=== PATIENT | male | born 1970 | race Caucasian/White ===

== ENCOUNTER 2018-06-27 09:00 | Outpatient (RCR) | payer BC, SELFPAY ==
--- NOTE | 2018-06-27 09:05 | BH.SGPN.GN ---
Behaviors/Verbalizations/Mental Status: [] Client alert and oriented, neatly dressed and groomed. Eye contact good. Motor activity appropriate. Speech within normal limits. Affect flat, mood anxious, depressed. Thoughts linear, logical, no signs of hallucinations or delusions. Client did not fill out a symptom tracker, but he will be meeting with individual therapist to assess suicidal ideation and safety. Client Response/Progress/Benefit: []Client responded well to session, quiet but participating, first day of PHP. Client shared feeling ?anxious? today due to it being client?s first day. Client shared he has been struggling with anxiety, depression, suicidal ideation, and alcohol use for the past few months. Client was recently discharged from inpatient and stated the experience was helpful and he obtained positive supports from it. Client stated he would like to learn how to manage his anxiety and other mental health symptoms while in PHP. Client to continue PHP to prevent decompensation, increase mood stability, and promote safety.
--- NOTE | 2018-06-27 10:15 | BH.SGPN.GN ---
Behaviors/Verbalizations/Mental Status: []Client alert and oriented, neatly dressed and groomed. Eye contact good. Motor activity appropriate. Speech within normal limits. Affect flat, mood anxious, depressed. Thoughts linear, logical, no signs of hallucinations or delusions. Client Response/Progress/Benefit: []Pt listened attentively to others, contributed his thoughts to discussion at times, and appeared engaged throughout session. Pt shared when he started to struggle with depression he had a difficult time asking for help. Pt reported however he realized just how much support he has once he went to rehab because of the overwhelming support he recivied from family and friends. Pt shared he recognizes now just how important it is to have and utilize supports. Pt reported using specific and clear communication is paez when it comes to using support system. Pt seemed to benefit from increasing awareness and identifying the qualities of healthy supports. Narrative Note: []
--- NOTE | 2018-06-27 11:15 | BH.SGPN.GN ---
Behaviors/Verbalizations/Mental Status: []Client alert and oriented, neatly dressed and groomed. Eye contact good. Motor activity appropriate. Speech within normal limits. Affect flat, mood anxious, depressed. Thoughts linear, logical, no signs of hallucinations or delusions. Client Response/Progress/Benefit: []Pt listened attentively to others and contributed his thoughts and ideas to discussion at times. Pt could identify different benefits to the types of social support discussed. Pt reported he will focus on increasing his personal support network. Pt shared building and using his personal supports will help him get out of the house. Pt stated his goal for the week is to reach out to at least one friend to set up a time to hangout. Pt seemed to benefit from learning about the various types of social support. Pt to continue PHP level of care to stabilize moods, decrease depression, and prevent decompensation. Narrative Note: []
--- NOTE | 2018-06-27 12:30 | BH.COMM_ITS ---
Communication Note - Communication with Client Communication Note: Met with pt prior to starting PHP. Updated preadmission screening which occured on 06/15/18 in which he voluntarily admitted himself to [facility]. No significant changes since previous assessment. Reports that hospitalization was beneficial and reduced symptoms however continues to reports anxiety, erratic moods, decreased motivation/energy, increased irritability, and depression. Denies any active suicidal ideations. Met with his psychiatrist last week. Currently taking Latuda 20mg and Buspirone 45mg. Completed paperwork
--- NOTE | 2018-06-27 14:22 | BH.PSA ---
Past Psychiatric History - MH Treatment Hx Medication Trials:: Yes ECT Therapy:: No Ethnicity - Culture Do you identify yourself with any particular cultural, ethnic background, or community?: No - Sexuality Sexual Orientation: Heterosexual Spirituality - Beliefs Is there a particular form of support from this community you can use for your recovery?: Yes Mental Status - Memory Recent Memory: Fair Remote Memory: Good - Concentration Concentration: Fair - Eye Contact Eye Contact: Fair - Speech Speech: Rapid - Thought Process Thought Process: Ruminations Insight: Fair Judgment: Fair Behavior: Anxious - Orientation Orientation: Time, Person, Place, Situation - Appearance Appearance: Neat/clean - Mood Mood: Anxious - Affect Affect: Alert Suicide Assessment - Suicidal Ideation Have you ever felt like hurting yourself?: Yes Were you using ETOH/drugs at the time?: No Suicidal Intentional Rating Scale (SIRS): Suicidal thoughts (past) Physician Notification: If Active suicidal thoughts/Will not contract for safety is checked, contact physician and document in the Physician Notification section below. Violent Behavior/Abuse History - Homicidal Ideation Do you have any homicidal thoughts? If so, explain:: Yes Is there a known potential victim? If yes, who:: No - Abuse Have you ever been abused?: No Types of Abuse: Witness - Life Events Are there any other significant life events?: Financial loss, Hardships - Safety Do you ever feel threatened in your home? If yes, describe:: No Substance Use - Substance Substance Use Type: Alcohol, Cocaine, Marijuana, Tobacco, Caffeine Education & Occupational Histo - Education What is your level of education?: Master Degree Do you have any learning disabilities?: No Legal History - Records Have you had any past legal charges?: No Do you have any current legal charges?: Yes Have you ever been incarcerated? If yes, describe:: No
--- NOTE | 2018-06-27 14:24 | BH.MTP ---
[facility] - Patient Information Program Physician:: Gayatri Segal Primary Therapist:: Shu De Oliveira - Psychiatric Diagnoses Psychiatric Diagnoses:: Bipolar 2 disorder; Alcohol use disorder moderate; Anxiety unspecified; Rule out antisocial personality traits Diagnosis Code(s):: F 31.81 - Estimated LOS Estimated LOS (in weeks):: 6 Problem/Goal #1 - Problem/Goal #1 Stated Goal:: Client will increase mood stability and decrease depressive symptoms, anger, and suicidal thinking due to Bipolar 2 disorder. Description of Barriers: Client identified his as both a support and a stressor as the two of them have some marital issues. Client shared they have tried marriage counseling in the past, but it was unsuccessful. Client appears to have limited insight to his personal warning signs and triggers for anger, depression, and angelika. Client reports he uses alcohol to cope with stress and recognizes it as an unhealthy coping skill, but client does not want to stop drinking as client enjoys beer. Client appears to have difficulty expressing emotions and reports asking for help has ?always? been a problem. Client reports low self-esteem, self-sabotaging behaviors, and unrealistic expectations of self. Client identified issues with interpersonal relationships as a barrier. Functional Impact: Client is a 48-year-old male who presents to [facility] status post recent inpatient psychiatric hospitalization at [place] June 15 - June 21 for depression with suicidal ideation. Client reports a long-standing history of mood symptoms including irritability and anger since childhood and has a history consistent with mood cycling. Client reports episodes of angelika lasting up to 4 days in which he is overly happy, impulsive, irritable, participates in risk-taking behavior including high speed driving, increased alcohol consumption and decreased need for sleep. Client?s most recent episode of angelika was mid-May this year. Client reports his manic episodes are generally followed by a crash into depression with anhedonia decreased energy and increased sleep and suicidal thoughts. Client endorses ruminative anxiety about the future and finding a job. Client identifies recent multiple stressors including job loss, a DUI, discord in his marriage, and an affair. Client shared his mood symptoms have affected occupational and social functioning. Additionally, client reports increased alcohol consumption to ?numb? his emotions of up to a 6 pack a day over 2 months. Goal Relevant Strengths/Supports: Client appears intelligent and reports motivation to improve his mental health and functioning. Client reports he lives for his daughter. Client identifies his daughter, , and two friends as his primary supports. - Objectives Objective #1 Stated Objective: Client will learn and utilize 2-3 healthy coping strategies to manage depressive symptoms, decrease anger, and increase mood stability. Interventions: Therapist will assist client in identifying warning signs and triggers for depression, suicidal ideation, and irritability. Therapist will teach client coping skills to reduce depression, manage anger, and regulate emotions. Discharge Criteria: Client will have accomplished this goal when he can identify and report using 2-3 healthy coping skills to reduce depressive symptoms and manage anger. Target Date: 07/04/18 Review Date: 07/04/18 Status: open Objective #2 Stated Objective: Client will work with therapist to develop a safety plan which includes emergency telephone numbers, strategies to make the environment safe, 3-4 coping strategies for suicidal ideation, lists of supports, positive aspects of his life, and motivations. Interventions: Therapist will help client identify warning signs for crisis and provide list of crisis phone numbers. Therapist will work with client to identify effective coping strategies, supports, and steps to take in time of mental health crisis. Therapist will work with client's supports to ensure the information is communicated and understood. Discharge Criteria: Client will have achieved this goal once he completes his safety plan and is able to utilize coping and thought replacement strategies. Target Date: 07/04/18 Review Date: 07/04/18 Status: open Problem/Goal #2 - Problem/Goal #2 Stated Goal:: Client will reduce anxiety and ruminations while increasing ability to function on daily basis. Description of Barriers: Client identified his as both a support and a stressor as the two of them have some marital issues. Client shared they have tried marriage counseling in the past, but it was unsuccessful. Client appears to have limited insight to his personal warning signs and triggers for anger, depression, and angelika. Client reports he uses alcohol to cope with stress and recognizes it as an unhealthy coping skill, but client does not want to stop drinking as client enjoys beer. Client appears to have difficulty expressing emotions and reports asking for help has ?always? been a problem. Client reports low self-esteem, self-sabotaging behaviors, and unrealistic expectations of self. Client identified issues with interpersonal relationships as a barrier. Functional Impact: Client is a 48-year-old male who presents to [facility] status post recent inpatient psychiatric hospitalization at [facility] June 15 - June 21 for depression with suicidal ideation. Client reports a long-standing history of mood symptoms including irritability and anger since childhood and has a history consistent with mood cycling. Client reports episodes of angelika lasting up to 4 days in which he is overly happy, impulsive, irritable, participates in risk-taking behavior including high speed driving, increased alcohol consumption and decreased need for sleep. Client?s most recent episode of angelika was mid-May this year. Client reports his manic episodes are generally followed by a crash into depression with anhedonia decreased energy and increased sleep and suicidal thoughts. Client endorses ruminative anxiety about the future and finding a job. Client identifies recent multiple stressors including job loss, a DUI, discord in his marriage, and an affair. Client shared his mood symptoms have affected occupational and social functioning. Additionally, client reports increased alcohol consumption to ?numb? his emotions of up to a 6 pack a day over 2 months. Goal Relevant Strengths/Supports: Client appears intelligent and reports motivation to improve his mental health and functioning. Client reports he lives for his daughter. Client identifies his daughter, , and two friends as his primary supports. - Objectives Objective #1 Stated Objective: Client will learn and implement 2-3 calming skills to reduce overall anxiety and manage anxiety symptoms. Interventions: Through group and individual sessions, therapist will teach client calming/relaxation skills and how to apply these skills to everyday life. Therapist will also teach client about cognitive distortions and how thoughts impact emotions and behavior. Discharge Criteria: Client will have achieved this goal when can verbalize at least 2 calming strategies and have practiced techniques to help reduce anxiety. Target Date: 07/04/18 Review Date: 07/04/18 Status: open
--- NOTE | 2018-06-27 14:25 | BH.MDN_ITS ---
Multi-Disciplinary Note - Note 60-min Individual Time Started:: 12:25 Date: 06/27/18 Purpose of session/treatment goals addressed:: The purpose of this session was to gather information on client's current stressors, symptoms, and treatment goals. Another goal was to build rapport. Eye Contact:: Fair Motor Activity:: Restless Appearance:: Neat Speech:: Rambling, Rapid Mood:: Anxious Affect:: Constricted Thoughts:: Racing, No evidence of hallucinations/delusions noted Staff Interventions:: Therapist used active listening and open-ended questions to build rapport and gather information on client's current stressors, symptoms, and treatment goals. Therapist used strengths perspective and emotional validation to combat stigma and negative thoughts client has of self and mental health. Therapist provided psychoeducation on bipolar disorder, anxiety, and depression. Therapist explored what therapeutic strategies that have worked and not worked for client in the past. Therapist discussed expectations for PHP and gave client homework on identifying warning signs and triggers. Client Response:: Client responded well to session, open to meeting with therapist. Client shared his mental health has been declining since 2013 and since then client has struggled to maintain a job, turned to increased drinking, and has increased interpersonal relationship issues. Client was recently discharged from [facility] where client was admitted for suicidal ideation, depression, anger, and anxiety. Client stated his anger is ?a big problem? and that client will often get angry without a known trigger. Client realizes he has an alcohol use issues as client recognizes he drinks to cope with stress, anger, and depression. Client had a DUI two weeks ago which client shared was triggered by an argument with his . Client reported three affairs, one emotional and two intimate. Client shared his is aware of the affairs. Client reported he does not understand why ?I?m so quick to grab onto a relationship.? Client expressed issues with self-image, stigma, and internal validation often sharing ?I used to be successful? and using comparisons. Client was diagnosed with bipolar 2 disorder at [place], and client shared having mixed emotions about the diagnosis due to the stigma, but he is glad to have a label to his emotions, behaviors, and thoughts. Client reports wanting to increase healthy coping skills, learn more about his patterns of behavior in relationships, and increase concentration. Risks/Concerns:: Client denies active suicidal ideation, plan, and intent as of 06/27/18. Client shared he does have thoughts of things would be better if I was gone but his family prevents client from acting on those thoughts. Client reports ability to maintain safety. Progress Toward Goals/Plan:: Client first day of PHP, so no progress to document at this time. Client reported his symptoms of depression and anxiety have been progressively getting worse over the past year. Client reported his treatment goals are to improve his concentration, reduce depression, and learn to manage symptoms. Client shared he was diagnosed with bipolar disorder type 2 while in inpatient and he continues to struggle with the stigma. Client would like to learn more about the diagnosis and how to cope with it. Client recognizes he uses drinking as an unhealthy coping skill and would like to learn new skills to replace drinking. Client stated he would also like to increase self-awareness of his unhealthy relationship patterns. Client to continue PHP to increase mood stability, promote safety, and prevent decompensation. Time Stopped:: 13:20
--- NOTE | 2018-06-28 09:05 | BH.SGPN.GN ---
Behaviors/Verbalizations/Mental Status: [] Eye contact is poor. Motor activity is restless. Appearance is neat. Speech is Appropriate. Mood is anxious and irritable. Affect is congruent. Thoughts are linear and logical. No evidence of psychosis. Reviewed daily check in sheet and no reports of suicidal ideations or intent Client Response/Progress/Benefit: [] Pt only spoke when promoted. Appeared restless today. Emotion for today is tired and irritable. Reports that irritability increased this AM during drive to [facility]. Pt currently on driving restrictions and requires to drive him which causes him stress. Shared pt's first day in PHP yesterday was exhausting. Again did not share much. No progress noted. Limited benefit from group today as he appeared agitated. Will continue in PHP to maintain safety, prevent decompensation, and increase functioning. Narrative Note: []
--- NOTE | 2018-06-28 10:10 | BH.SGPN.GN ---
Behaviors/Verbalizations/Mental Status: []Eye contact is fair. Motor activity is restless. Appearance is neat. Speech is Appropriate. Mood is anxious and irritable. Affect is congruent. Thoughts are linear and logical. No evidence of psychosis. Client Response/Progress/Benefit: [] Client was active participant as evidenced by contributing to discussion and listening to others. Client agreed with peers that goals are important because goals can provide direction and purpose. Client shared sometimes it is difficult for him to follow through with goals because easily distracted or loses motivation. Client sure that it is important for him to set a goal because good to help him move forward. Client shared another important thing to remember is goals can be changed especially when set unrealistic expectations. Continued benefit from increasing knowledge and awareness of how to set smart goals as well as practicing setting small goals in the moment. His Narrative Note: []
--- NOTE | 2018-06-28 11:20 | BH.SGPN.GN ---
Behaviors/Verbalizations/Mental Status: []Eye contact is poor. Motor activity is restless. Appearance is neat. Speech is Appropriate. Mood is anxious and irritable. Affect is congruent. Thoughts are linear and logical. No evidence of psychosis. Client Response/Progress/Benefit: []Pt listened to others and shared thoughts and feelings when elicited by therapist. 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 Pt shared potential solutions to identified obstacles include: communicate with machine shop owners to find time to use shop, sell other car parts on [employer] for money, and work evenings or weekends. Pt reported he can also use his as additional support to help him accomplish his goal. Pt seemed to benefit from identifying a small goal to help him have a positive focus throughout week. Narrative Note: []
--- NOTE | 2018-06-28 14:46 | BH.MDN ---
Multi-Disciplinary Note - Note 60-min Individual Time Started:: 12:27 Date: 06/28/18 Purpose of session/treatment goals addressed:: The purpose of this session was to explore client's mental health warning signs and triggers. Another goal was to discuss coping skills when client recognizes these warning signs and triggers. Eye Contact:: Fair Motor Activity:: Restless - fidgeting with his shirt and binder Appearance:: Neat Speech:: Tangential Mood:: Anxious, Irritable, Dysthymic Affect:: Flat Thoughts:: Racing, No evidence of hallucinations/delusions noted Staff Interventions:: Therapist used open-ended questions to explore client's current stressors and symptoms. Therapist used a worksheet of various warning signs and triggers associated with bipolar disorder and helped client identify ones that pertain to him. Therapist discussed maintenance cycles with client and how cognitive distortions can keep a person stuck. Therapist reviewed healthy coping skills with client. Client Response:: Client responded well to session, open to meeting with therapist. Client reported connecting with the warning signs and triggers worksheet. Client identified various warning signs for hypomania including calling people at inappropriate times, impulsive/risky behaviors, increased anger and irritability, overreacting, and being hyper focused on goals. Client also identified warning signs for depression as well such as isolation, negative thinking, and low motivation. Client identified his triggers for angelika and depression as well. Client shared his biggest triggers are stressful life events, seasonal changes, negative thinking, and feeling sedentary. Client and therapist further discussed cognitive distortions and client reported at times he tells himself I don't deserve to be happy which client recognizes sets himself up for failure. Client receptive to using audiobooks or music as a healthy coping skill in the car to prevent client for becoming angry with his . Risks/Concerns:: Client reports having passive thoughts of , but they do not last more than a few minutes. Client denies plan and intent. Client shared his support system prevents client from acting on the thoughts. Client reports ability to maintain safety. Progress Toward Goals/Plan:: Limited progress currently as it is client's second day in PHP. Client shared that after talking more about bipolar disorder, he feels more accepting that this is his diagnosis. Client continues to endorse irritability, passive thoughts of , a depressed mood, low motivation, and rumination. Client to continue PHP to prevent decompensation, increase awareness, and improve mood stability. Time Stopped:: 13:25
--- NOTE | 2018-06-29 10:14 | BH.SGPN.GN ---
Behaviors/Verbalizations/Mental Status: [Client engaged in group, maintained fair eye contact - at times looking down/away. Casual, neat attire. Appropriate grooming/hygiene. Motor activity WNL. Client speech was a normal rate and tone - at times soft or slow to respond as client appearing deep in thought, mood depressed, affect flat, thoughts linear and logical - at times self-deprecating in nature, reflective. no evidence of delusions or hallucinations.] Client Response/Progress/Benefit: [Responded well to session was actively engaged throughout. Client initially took on a passive participatory role; however, did well to remain active listener throughout the discussion regarding the importance of making healthy changes in one's daily life in order to better improve overall mental health and wellness. He displayed progress in his ability to openly engage during the reflection activity in which clients were challenged to identify small changes they can make in their own life in order to better promote continued progress towards mental health goals. Client benefited from discussing potential barriers for implementing some healthy changes with the group. He initially struggled with identifying what may be preventing him from working towards current goal of improving his overall self-confidence and indicated lacking awareness of what his current barriers may be. As client listen to fellow participants discussed their own barriers he did well to identify some obstacles in his own life including distractions, self-doubt, and feeling uncomfortable in challenging his own negative thinking and self talk. Client would benefit from continued work on identifying distorted thinking patterns as well as potential means for challenging negative or distorted thoughts.] Narrative Note: []
--- NOTE | 2018-06-29 14:14 | BH.MDN ---
Multi-Disciplinary Note - Note Family Time Started:: 09:00 Date: 06/29/18 Purpose of session/treatment goals addressed:: The purpose of this session was to address acute stressors, assess safety, and incorporate client's into the treatment process. Another goal was to create a safety plan. Eye Contact:: Poor Motor Activity:: Slowed Appearance:: Neat Speech:: Soft Mood:: Depressed Affect:: Flat Thoughts:: Linear, Logical, No evidence of hallucinations/delusions noted Staff Interventions:: Therapist used active listening and open-ended questions to explore stressors, triggers, and recent suicidal ideation. Therapist provided psychoeducation to increase understanding and normalize client's experience. Therapist assessed risk and created a safety plan with client and his . Therapist assisted client in identifying warning signs and coping skills. Therapist discussed options for higher level of care should client not be able to maintain safety. Therapist gave client and his crisis resources and information to [facility] should client no longer be able to maintain safety. Therapist helped client verbalize what will help client and what will make client feel worse during moments of crisis. Therapist discussed situation with treatment team and encouraged client to follow up with therapist this afternoon. Therapist to follow up with client's outpatient psychiatrist Dr. Wall on regarding medication concerns. Client Response:: Client entered session quiet and appearing agitated and depressed, but open to meeting with therapist and . Client's shared yesterday client was in a very dark place...I didn't know what to do. Client reported the day was overall good, client left group and did several productive things with his . Client then shared later he had a few beers and contacted the woman he had an affair with. Client reported they spoke on the phone and it provided closure, which was positive, but client recognized after I got stuck in my mind. Client shared he and his then watched a show that was about suicide which further triggered client and led to writing a letter. Client reported he was able to go to sleep, but he woke up feeling depressed. Client's reported she watched client to make sure he was safe, but she feels helpless on what to do if this were to happen again. Therapist discussed returning to inpatient treatment which client and his declined as they felt having a safety plan would be more effective at this time. Therapist discussed pros and cons with client and his . Client and his agreed to the terms of the safety plan and reported understanding should client feel unable to maintain safety he is to go to [facility] or the emergency room. Client identified his warning signs, negative thought patterns, and needs during crisis. Client also came up with coping skills to try today and positive self-talk statements. When asked what will keep client safe today client shared I don't want to go in reference to and that he wants to maintain safety for his family and for himself. Client reports plan to work on his goal from yesterday and text positive supports. Risks/Concerns:: Client reports last night was bad as he had suicidal thoughts, and this morning woke up with some fleeting suicidal ideation. Client identified an accumulation of talking to the woman he had an affair with, drinking, and watching a show about suicide as contributors to his increased suicidal ideation. Client was able to control the thoughts and go to bed last night. Client shared since coming to [facility] today his mood has slightly improved, and he continues to have passive thoughts, but no longer has active suicidal ideation or plan. Client reported if he was alone last night ?I probably would have done it?, but his was with him which served as a protective factor. Client reported he wrote a letter to his and daughter yesterday when he was experiencing the suicidal thoughts. Client did not engage in any other preparatory acts such as accessing weapons or stockpiling medications. Client does not have a history of attempts and able to identify deterrents such as his , daughter, and friends as reasons to live. Client declined to seek inpatient treatment, sharing with the safety plan in place and his watching him, client feels able to maintain safety today. Client in agreement to have lock up medications, remove alcohol for home, avoid triggering people, and hide car keys. Client stated he knows he can maintain safety today because I don't want to go [] and I want to be safe for myself. Client future oriented as evidenced by his report of plans to work on his goal from yesterday, watch a movie he enjoys, and attend group tomorrow. Client and report understanding that should client no longer feel able to maintain safety, or if his symptoms worsen, client is to go to the emergency room or go to [facility] inpatient facility. Progress Toward Goals/Plan:: limited progress as client continues to report a depressed mood, fleeting suicidal ideation, anxiety, anger, and low self-esteem. Client and completed a safety plan with therapist and both agreed to follow procedures established on the safety plan including making the environment safe and who to contact. Client agreed to have his lock up medications, keep the car keys, remove alcohol, and watch client throughout the evening. Client in agreement that should he no longer feel able to maintain safety he will go to [facility] inpatient [facility]. Client to continue PHP to prevent decompensation, promote safety, and increase mood stability. Time Stopped:: 10:00
--- NOTE | 2018-06-29 14:18 | BH.MDN_ITS ---
Multi-Disciplinary Note - Note Family Time Started:: 09:00 Date: 06/29/18 Purpose of session/treatment goals addressed:: The purpose of this session was to address acute stressors, assess safety, and incorporate client's into the treatment process. Another goal was to create a safety plan. Eye Contact:: Poor Motor Activity:: Slowed Appearance:: Neat Speech:: Soft Mood:: Depressed Affect:: Flat Thoughts:: Linear, Logical, No evidence of hallucinations/delusions noted Staff Interventions:: Therapist used active listening and open-ended questions to explore stressors, triggers, and recent suicidal ideation. Therapist provided psychoeducation to increase understanding and normalize client's experience. Therapist assessed risk and created a safety plan with client and his . Therapist assisted client in identifying warning signs and coping skills. Therapist discussed options for higher level of care should client not be able to maintain safety. Therapist gave client and his crisis resources and information to [facility] should client no longer be able to maintain safety. Therapist helped client verbalize what will help client and what will make client feel worse during moments of crisis. Therapist discussed situation with treatment team and encouraged client to follow up with therapist this afternoon. Therapist to follow up with client's outpatient psychiatrist Dr. Wall on regarding medication concerns. Client Response:: Client entered session quiet and appearing agitated and depressed, but open to meeting with therapist and . Client's shared yesterday client was in a very dark place...I didn't know what to do. Client reported the day was overall good, client left group and did several productive things with his . Client then shared later he had a few beers and contacted the woman he had an affair with. Client reported they spoke on the phone and it provided closure, which was positive, but client recognized after I got stuck in my mind. Client shared he and his then watched a show that was about suicide which further triggered client and led to writing a letter. Client reported he was able to go to sleep, but he woke up feeling depressed. Client's reported she watched client to make sure he was safe, but she feels helpless on what to do if this were to happen again. Therapist discussed returning to inpatient treatment which client and his declined as they felt having a safety plan would be more effective at this time. Therapist discussed pros and cons with client and his . Client and his agreed to the terms of the safety plan and reported understanding should client feel unable to maintain safety he is to go to [facility] or the emergency room. Client identified his warning signs, negative thought patterns, and needs during crisis. Client also came up with coping skills to try today and positive self- talk statements. When asked what will keep client safe today client shared I don't want to go in reference to and that he wants to maintain safety for his family and for himself. Client reports plan to work on his goal from yesterday and text positive supports. Risks/Concerns:: Client reports last night was bad as he had suicidal thoughts, and this morning woke up with some fleeting suicidal ideation. Client identified an accumulation of talking to the woman he had an affair with, drinking, and watching a show about suicide as contributors to his increased suicidal ideation. Client was able to control the thoughts and go to bed last night. Client shared since coming to [facility] today his mood has slightly improved, and he continues to have passive thoughts, but no longer has active suicidal ideation or plan. Client reported if he was alone last night ?I probably would have done it?, but his was with him which served as a protective factor. Client reported he wrote a letter to his and daughter yesterday when he was experiencing the suicidal thoughts. Client did not engage in any other preparatory acts such as accessing weapons or stockpiling medications. Client does not have a history of attempts and able to identify deterrents such as his , daughter, and friends as reasons to live. Client declined to seek inpatient treatment, sharing with the safety plan in place and his watching him, client feels able to maintain safety today. Client in agreement to have lock up medications, remove alcohol for home, avoid triggering people, and hide car keys. Client stated he knows he can maintain safety today because I don't want to go [] and I want to be safe for myself. Client future oriented as evidenced by his report of plans to work on his goal from yesterday, watch a movie he enjoys, and attend group tomorrow. Client and report unde rstanding that should client no longer feel able to maintain safety, or if his symptoms worsen, client is to go to the emergency room or go to [facility] inpatient facility. Progress Toward Goals/Plan:: limited progress as client continues to report a depressed mood, fleeting suicidal ideation, anxiety, anger, and low self-esteem. Client and completed a safety plan with therapist and both agreed to follow procedures established on the safety plan including making the environment safe and who to contact. Client agreed to have his lock up medications, keep the car keys, remove alcohol, and watch client throughout the evening. Client in agreement that should he no longer feel able to maintain safety he will go to [facility] inpatient facility. Client to continue PHP to prevent decompensation, promote safety, and increase mood stability. Time Stopped:: 10:00
--- NOTE | 2018-06-29 16:09 | BH.COMM ---
Communication Note - Communication with Client Communication Note: Therapist called client to follow up. Client reported no suicidal thoughts and shared he is feeling okay. Client shared he has been busy since leaving group today which client reported it's been a nice distraction. Client appeared future oriented on the phone as shown by his report to work on his goal when he gets home, watch a movie, and attend group tomorrow.
--- NOTE | 2018-06-30 09:05 | BH.SGPN.GN ---
Behaviors/Verbalizations/Mental Status: [] Eye contact is good. Motor activity is appropriate. Appearance is neat. Speech is Appropriate. Mood is depressed. Affect is flat. Thoughts are linear and logical. No evidence of psychosis. Reviewed daily check in sheet and pt reports suicidal thoughts /5 and intent at 2/. Primary therapist notified. Client Response/Progress/Benefit: [] Pt was active participant in group discussion. Emotion for today is melancholic. Stated that he was depressed upon entering group however is feeling much better after listening to others and participating in group discussion. Did not elaborate much more except to say that yesterday the last two days have been challenging, however he believes that he is improving. Progress noted from yesterday as he appears more engaged with brighter affect. Will continue in PHP to maintain safety, decrease depression, and prevent further decompensation. Narrative Note: []
--- NOTE | 2018-06-30 10:12 | BH.SGPN.GN ---
Behaviors/Verbalizations/Mental Status: []Client alert and oriented, neatly dressed and groomed. Eye contact good. Motor activity appropriate. Speech within normal limits. Affect flat, mood dysthymic. Thoughts linear, logical, no signs of hallucinations or delusions. Client Response/Progress/Benefit: []Client responded well to session, quiet but increasing engagement throughout. Client appeared to connect with the quote stating, ?it?s not about if we fall it?s about how we get up.? Client discussed coping skills with the group and how one develops coping skills. Client stated people use unhealthy coping skills due to habit and experiences. Client participated in a group activity and reflected that having a strong base of healthy internal and external coping skills is needed for mental health progress. Client appeared to benefit from learning about how one learns coping skills and from recognizing the importance of having internal and external coping skills. Client seems to be progressing as evidenced by his improved mood today, but he can continue to benefit from PHP to prevent decompensation and increase mood stability.
--- NOTE | 2018-06-30 11:10 | BH.SGPN.GN ---
Behaviors/Verbalizations/Mental Status: []Client alert and oriented, neatly dressed and groomed. Eye contact good. Motor activity appropriate. Speech within normal limits. Affect flat, mood depressed. Thoughts linear, logical, no signs of hallucinations or delusions Client Response/Progress/Benefit: []Client responded well to session, quiet, but participating when prompted. Client helped the group discussed the different categories of coping skills and the purpose each one serves in managing mental health symptoms. Client created a coping skills menu with a coping skill from each category. Client?s menu included: Delay, Distract, Decide, keeping a touching stone, finding something to laugh at, and radical acceptance. Client agreed with peers that it is important to have a variety of coping skills to more effectively cope with difficult situations. Client appeared to benefit from gaining numerous coping skills and learning the pros and cons of each coping skill category. Client to continue PHP to prevent decompensation and increase mood stability.
--- NOTE | 2018-06-30 15:16 | BH.MDN ---
Multi-Disciplinary Note - Note 60-min Individual Time Started:: 12:20 Date: 06/30/18 Purpose of session/treatment goals addressed:: Assessed current symptoms and progress in PHP. Reviewed safety plan. Provided education on cogntivie distortions, thought record, and anger mgmt strategies. Eye Contact:: Good Motor Activity:: Appropriate Appearance:: Neat Speech:: Appropriate Mood:: Depressed Affect:: Full Thoughts:: Linear, Logical, No evidence of hallucinations/delusions noted Staff Interventions:: risk assesment compelted. Reviewed safety plan. Utilized DC to elict change behaviors. Provided education on cognitive distortions and thoughts reframing. Given assigment to complete thought record. Reviewed strategies to manage anger. Client Response:: Currently denies any suicidal ideations, plan, or intent. Last thought occured yesterday. Contracts for safety. Future-oriented. Protective factors reported. Stated that 06/28/18 Was a horrible night in regards to suicidal thoughts. Refer to previous notes. He states that yesterday night was better stating that he listened to music and watched a movie with his . Admitted to anger outburst in which he broke his phone yesterday. Further processed this outburst. Pt originally stated this was impulsive however while processing it was discoverd that his anger had been building for an hour previous to the outburst. Pt admitted that he did not utiize any coping skills to better manage his anger when it was at a level 3 or 4 and let his thoughts ruminate till he exploded. Was able to identify ways to identify and cope with anger at early stages as well as importance of recognize warning signs. Pt was receptive to education on the impact of thoughts on emotions and behaviors. Was given thought record. Also receptive to education on cognitive distortions and the impact these have on thoughts and emotions. Risks/Concerns:: Denies any suicidal ideations, plan, or intent. Denies any desire to be or fall asleep and not wake up. Reports he had some passive thoughts of this AM however is currently feeling good . Reports that Wednesday he had significant suicidal ideations however with gradual improvement yesterday and today. Progress Toward Goals/Plan:: Progress noted from the previous two days. More engaged in group and individual therapy today. Receptive to education provided today and appears motivated to make changes. Pt continues to have concerns regarding his medications and does not feel that Lutuda is effective. Plain is to continue in PHP to maintain safety, prevent further decompensation, and stabilze mood. Will meet with psychiatrist tomorrow. Time Stopped:: 13:15
--- NOTE | 2018-07-01 09:10 | BH.SGPN.GN ---
Behaviors/Verbalizations/Mental Status: [] Eye contact is good. Motor activity is appropriate. Appearance is neat. Speech is Appropriate. Mood is depressed. Affect is flat. Thoughts are linear and logical. No evidence of psychosis. Reviewed daily check in sheet. Reports SI as 2/5 and intent as 1/5 which continues to decrease from earlier this week. Client Response/Progress/Benefit: [] Pt was an active participant in group discussion on managing negative self-talk when alone and unrealistic demands we place on ourselves. Provided appropriate feedback to peers. Emotion for today is apprehensive. Shared with the group that he was able to better manage his mood yesterday and did not experience any overwhelming emotions or distress. Notes improvement in mood. Also shared that he has an interview set up for a job in the next coming weeks. Reports that he is excited about this opportunity. Does not elaborate on symptoms in group however continues to be more engaged in group discussion and less distant and irritable. Progress noted per pt report and daily check-in sheet. Will continue in PHP to maintain safety, stabilize mood, and prevent and further decompensation. Benefited from group support and encouragement. Narrative Note: []
--- NOTE | 2018-07-01 12:00 | BH.NA ---
Physical Data - Vital Signs Pulse Rate: 68 Respiratory Rate: 14 Blood Pressure: 116/79 - Height/Weight Height: 1.83 m Weight:: 106.594 kg Weight in Pounds: 235.0 lbs Current Medication Compliance - Medication Compliance Do you take your medication as prescribed?: Yes Do you need assistance with taking medication?: No Have you had side effects from medication?: No Nutritional History - Appetite Nutritional Instructions:: If client shows signs of a swallowing problem, weight change of 10 pounds or more in the last month, or is on a diabetic diet, the physician will review and request a dietitian consult, as appropriate. All unintentional weight loss will be referred to the physician for decision on need for dietitian consult. Describe your appetite:: Good Have you noticed a change in your eating habits lately?: Yes - slightly increased recently with 5-10# unintentional wt gain Functional Assessment - Sleep Pattern Describe any problems with sleeping: Client describes difficulty falling asleep linked to rumination. - Activities Motor Activity:: Functional Sensory/Communication Assess - Hearing Problems Do you have any hearing problems?: Adequate - Communication Problems Do you have difficulty understanding what people are saying?: No Do you have trouble putting your thoughts into words or expressing what you want to say?: No Do people ever have trouble understanding what you say?: No What is your primary language?: Kyrgyz Learning Assessment - Learning Barriers Learning Barriers:: Ready to learn Medical Problems/History - Cardiac Conditions Cardiovascular: Hypertension, Hyperlipidemia - Pain Assessment Do you have acute or chronic pain?: No Surgical History - Surgical History Have you had any surgeries? If so, list type and date:: No Substance Abuse - Substance Abuse Please describe substance abuse in the last 30 days:: Drinks 2-3 beers approx 4 days/wk. Former smoker, quit in 2010 after 20-25 pack years. Mental Status Summary - Mental Status Significant Findings/Observations on Appearance and Mood:: Juvenal is an A&Ox4 male who is cooperative with interview. Makes good eye contact. Appropriate grooming and hygiene, casually dressed. Speech is clear and of normal rate and volume. Mild anxiety and anhedonia. Mood congruent affect. Logical associations and normal process. Fair-average knowledge. No symptoms of delusions. Denies hallucinations and HI. Has been having intermittent, fleeting SI. Suicide Assessment - Suicidal Ideation Are you currently or have you been suicidal in the past?: Yes Suicidal Intentional Rating Scale (SIRS): Suicidal thoughts (past), Current suicidal thoughts/No plan/Contracts for safety Physician Notification: If Active suicidal thoughts/Will not contract for safety is checked, contact physician and document in the Physician Notification section below. Past Psychiatric History - MH Treatment Hx Past Psychiatric Medications:: Latuda, SSRI's, Lamictal ECT Therapy Details:: N/A Age of first mental health symptoms: some time in my childhood Current providers for mental health treatment (counselor, psychiatrist, case packer and sealer, etc.): Dr. Kalyani Wall Fall Risk Assessment - Age Age: Less than 60 - Mental Status Mental Status: Willing & able to ask for assistance when needed - Physical Status Physical Status: No problems - Impairments Impairments: None - Elimination Elimination: Continent AND independent - Gait or Balance Gait or Balance: Walks independently - Hx of Falls History of falls in the past 6 months: No known history - Medications/Substances Psychotropics:: Anxiolytics (e.g. benzodiazepines) Medications/substances used within the past 24 hours or ordered to administer: 1-2 of the medications/substances listed above - Total Score Total Points:: 1 Physician Notification - Physician Notification Physician Notified: Gayatri Segal Method of Notification: Face to Face Comments: treatment planning discussion RN Summary of Impressions - Impressions Recommendations: Include psychiatric and medical issues, treatment planning recommendations, and discharge planning needs. Impressions: Psychiatric Issues: bipolar 2, ETOH abuse, anxiety, cluster B personality traits Impression: Medical Issues: N/A Impression: General Medical Conditions: HTN, HLD, seasonal allergies, chronic venous insufficiency - Level of Care How do the client's current symptoms and functional deficits support need for this level of care?: Client notes a significant, progressive decline in his mental health since April 2018. He describes difficulty with mood regulation, impulsivity, and intermittent SI. He identifies his pending divorce, DUI charge in May 2018, his job, and finances as major stressors. He continues to drinks several days weekly and recognizes this as an unhealth coping mechanism. He continues to have fleeting, intermittent SI, but denies plan or intent. PHP will promote gains and prevent further decompensation of his symptoms.
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
--- NOTE | 2018-07-01 13:21 | BH.DR.ITP ---
Initial Treatment Plan - Patient Information Visit Information: ADMISSION DATE: EXPECTED LOS: 4-6 weeks Diagnoses:: bipolar 2 disorder - Problems/Symptoms Problem #1:: mood Instability. Mood cycling Symptom:: Depression, sad mood, anhedonia, biologic disruption of sleep and appetite, irritability, anger, suicidal ideation Symptom:: Anxiety Problem #2:: rumination
--- NOTE | 2018-07-01 14:30 | BH.PSA ---
Source of Information - Presenting Problems/Circumstances Problems, Referral Source, Mental Status, Client: Referred by [facility] after admission for suicidal ideations. Alert and oriented. Affect is flat. Mood is depressed. Thoughts are linear and logical. No angelika or delusions noted. Psychiatric Presentation - Psych Issues & Need for Admission Psychiatric Issues:: Suicidal ideations, anxiety, ruminations, psycho-social stressors, erratic mood, anger management issues. Past Psychiatric History - MH Treatment Hx Treatment History: Currently linked with Dr. Jerica Wall for psychiatry for the past 5 years. Reports previous treatment through Dr. Salgado for psychiatry. Hx of marriage counseling. First hospitalization:: [place] 06/15/18 Most recent hospitalization:: refer above Medication Trials:: Yes ECT Therapy:: No Age of first mental health symptoms: Diagnosed with Intermittent Explosive Disorder in 2005. Describe (age, circumstance, etc) any past hospitalizations: Recent stressors related to loss of job in April 2018. Pt was fired after having an affair with a co-worker. Reports downward spiral since then which led to increased conflcits with and a DUI on 06/10/18. Current providers for mental health treatment (counselor, psychiatrist, ed case manager, etc.): Dr. Huma Wall- Providers for Health Living Development & Family of Origin - Childhood Significant Childhood Events: none reported - Family Who currently lives in your home?: Currently lives with of 40 years. Describe family composition:: Very conflicted relationship with . Pt has hx of several extra-marital affairs. Pt reports postive relationship with daughter (24) and son (29) - Family History Family Hx of Psychiatric or AOD Problems: Biological Sister- Depression, suicide attempt. Father- depression, alcohol abuse. Family hx of bipolar Ethnicity - Culture Do you identify yourself with any particular cultural, ethnic background, or community?: No - Sexuality Sexual Orientation: Heterosexual Spirituality - Jehovah'S Witness Do you currently identify with any organized catholic?: agnostic beliefs - raised strict advent- grandparents were preachers - Beliefs Is there a particular form of support from this community you can use for your recovery?: No Mental Status - Memory Recent Memory: Fair Remote Memory: Fair - Concentration Concentration: Poor - Eye Contact Eye Contact: Fair - Speech Speech: Articulate - Thought Process Thought Process: Logical, Ruminations Insight: Poor Judgment: Poor Behavior: Agitated - Orientation Orientation: Time, Person, Place, Situation - Appearance Appearance: Neat/clean - Mood Mood: Depressed, Sad, Irritable - Affect Affect: Flattened Suicide Assessment - Suicidal Ideation Have you ever felt like hurting yourself?: Yes Please explain:: reports fleeting suicidal thoughts which occur on a daily basis Were you using ETOH/drugs at the time?: Yes - Alcohol Suicidal Intentional Rating Scale (SIRS): Suicidal thoughts (past) - Currently reports passive suicidal ideations wouldn't mind if I just . Denies active suicidal ideations, plan, or intent. No hx of attempts. Had significant ideations and thoughts with methods last week. Contracts for safety. Protective factors reported. Physician Notification: If Active suicidal thoughts/Will not contract for safety is checked, contact physician and document in the Physician Notification section below. Violent Behavior/Abuse History - Homicidal Ideation Do you have any homicidal thoughts? If so, explain:: No Is there a known potential victim? If yes, who:: No - Abuse Have you ever been abused?: No - Life Events Describe significant life events: Was recently fired from his job. Recent DUI. Marriage conflicts. - Safety Do you ever feel threatened in your home? If yes, describe:: No Adult Social History - Age 20 to Present Describe your current support system:: , children, and friends Substance Use - Substance Substance Use Type: Alcohol - Specific Drugs What specific drugs have you used?: Alcohol - Extent of Use What quantity of substances have you used?: Alcohol- 6 pack of craft beers daily - Duration of Use How long have you used substances?: Since 23 - Last Usage What is the date and situation you last used?: continued use- 2-3 beers twice a week. - Withdrawal History Comments:: denies withdrawal effects - IV Substance Use Do you have a history of IV use?: denies Leisure/Social Activities - Interests What do you enjoy or might be interested in learning about?: Bipolar and personality disorders Education & Occupational Histo - Education What is your level of education?: Master Degree - Business Managment Do you have any learning disabilities?: No - Occupation List any current or past employment:: Currently unemployed. 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 Legal History - Records Have you had any past legal charges?: Yes - Theft (1993) used [employer] credit cards Do you have any current legal charges?: Yes - DUI (05/2018) Have you ever been incarcerated? If yes, describe:: No - Court Orders Have you had any past court orders for psychiatric treatment?: No Do you have a present court order for psychiatric treatment?: No Problem Checklist - Current Problem Areas Problem List: Depressed mood/sad, Anger/aggression, Impulsivity, Mood swings/hyperactivity, Other addictive behaviors, Additional psychosocial stressors Discharge Planning Needs - Anticipated Follow-Up Mental Health Center (Name/Phone Number):: [facility] Private Therapist/Psychiatrist:: Dr. Huma Wall- Providers for Health Living Other (to be determined): tbd Family and Caregiver Contacts:: Estela Jack- Release of Information Signed:: Yes Community Agency Contacts: tbd Margin Clerk Name/Phone Number: n/a Plate Mill Hand's Assessment - Client's Needs What are the client's feelings about the program?: Intially was apprehensive however reports that he is motivated to develop skills to better manage his emotions. What are the client's goals?: Decrease anxiety and ruminations. Increase education on Bipolar. Anger mgmt. learn healthy coping skills. What are the client's strengths?: intelligent, determined. Diagnoses - Diagnoses Diagnosis #1:: Bipolar 2 Diagnosis #2:: Alcohol Use Disorder, moderate Diagnosis #3:: Anxiety, unspecified Interpretive Summary - Interpretive Summary Interpretive Summary: Pt is a 48 year old male who was referred to [facility] by [facility] upon discharge on 06/21/18. Admitted to psychiatric unit on 06/15/18 due to suicidal ideations. Reports worsening depression, anxiety, and intermittent suicidal thoughts for the past two months. Acute stressor on 06/10/18 related to argument with and DUI which increased depression, hopelessness, and suicidal thoughts. Denies any hx of suicidal attempts. Denies HI or psychosis. Reports that he would drank on average 4-5 craft beers daily prior to DUI. Endorses frequent panic attacks due to psychosocial stressors which include conflicted marraige, recent extra-marital affairs, and unemployment. Treatment Plan Recommendations - Recommendations Guidelines: Special needs identified to be included in the development of an individualized treatment plan regarding past psychiatric history and treatment, developmental events, family relationships/events/culture, past and/or current educational, occupational, social, and residential experience, and legal status. Recommendations:: Due ot recent hospitaliztion, intermittent suicidal ideations, acute stressors and exacerbation of symptoms recommended [facility] level of care. On second day of PHP pt reported significant distress and suicidal ideations while at home. Safety planning was compelted (Refer to chart). Will continue to require PHP level of care.
--- NOTE | 2018-07-01 15:01 | BH.MDN ---
Multi-Disciplinary Note - Note 60-min Individual Time Started:: 12:30 Date: 07/01/18 Purpose of session/treatment goals addressed:: Assess current symptoms. Review progress in PHP. Review thought-record and cognitive distortions assignment. Eye Contact:: Good Motor Activity:: Appropriate Appearance:: Neat Speech:: Appropriate Mood:: Depressed Affect:: Congruent Thoughts:: Linear, Logical, No evidence of hallucinations/delusions noted Staff Interventions:: Utilized NH techniques to elicit change behaviors. Provided education on cognitive distortions. Processed recent anger event using thought log. Provided Calm Seas book for pt to read to increase awareness of criteria for bipolar. Client Response:: Pt reports that his mood continues to improve. Denies any active suicidal ideations, plan, or intent. States that the thoughts are fleeting (few moments) and have been decreasing since 06/28/18. Reports progress since significant suicidal ideations with thoughts of method and intent on 06/28/18. Reports that he is more future-oriented. Disucssed his session with psychiatrist today. He reports that he is starting to see why a Bipolar dx was given to him. We reviewed the assignment that he was given yesterday, however he did not complete majority of the assignment. Was able to identify cognitive distortions that he uses as mind-reading, judgment focus, discounting positives, negative filtering, unfair comparisons, and labeling. He discussed his reasons for choosing these distortions. He did not complete thought log so we took example from yesterday regarding anger and processed the event, thougths, emotions, and behavior. Insight into how he is placing unrealistic expectations on himself and reviewed how his thoughts and cognitive distortions play a role in this. entered the session for the remaining 10 minutes. Pt's affect changed when was in the room and he appeared more tense and irritable. displayed an aggressive communication style and at times would blame him for her mood and stressors which increased pt's irritability. She had numerous questions regarding his diagnosis and medications both of which she did not agree with. Pt has appt with outpatient psychiatrist Dr. Wall early next week. Agreed to hold off on medication prescribed today till they can review with Dr. aWll.(Dr. Segal aware and agreeable). Risks/Concerns:: Pt denies any active suicidal ideations, plan, or intent. Reports occasional passive thoughts of . Reports fleeting SI (few moments) throughout the day however nothing significant and he feels that he is able to control these thoughts. Currently has safety plan and is agreeable to following though with this for the weekend. He reports that he did have 2 beers yesterday. was present and was agreeable. This is against the safety plan. We discussed this further and encouraged sobriety. Does not present as imminent danger to self due to no active SI, plan, or intent. Future-oriented (job interview on 07/15/18). Protective factors (daughter). Feels that he can keep himself safe. Progress Toward Goals/Plan:: Progress noted since starting PHP with reports of decreased intensity, duration, and frequency of suicidal ideations. Pt's attendance has been consistent however at times does not appear to be motivated in certain groups or with completing assignments. Also apparent today was that relationship with is extremely conflicted and that she can be a trigger to anger. After session was complete they were arguing in the parking lot. Therapist briefly met with them and conflict was processed. Both apologized and were smiling after brief theraputic intervention. Hx of marriage counseling however pt reports that it has been unhelpful. Plan is to continue in PHP to maintain safety, prevent decompensation, and stablize mood. Will fax psychiatric evaluation to pt's outpatient provider. Will discuss further with pt next session strategies to better manage conflicted relationship with . Time Stopped:: 01:30
--- NOTE | 2018-07-04 09:03 | BH.SGPN.GN ---
Behaviors/Verbalizations/Mental Status: [Client maintained fair, at times avoidant eye contact -often looking down or away, casually and comfortably dressed, motor activity WNL - closed body language - sitting with legs and arms crossed, speech normal rate and tone, mood depressed, agitated, affect congruent, thoughts linear and logical, no evidence of delusions or hallucinations. Therapist reviewed client?s symptom tracker to assess for intensity of mental health symptoms and identify risk for suicide. No signs of suicidal ideation, plan, or intent to date.] Client Response/Progress/Benefit: [Client receptive of session and willing to remain attentive throughout. He took on a passive participatory role as fellow participants shared thoughts, feelings, and frustrations regarding their own mental health symptoms. Client did well however to discuss his own experiences managing mental health symptoms and stressors occurring over the weekend. Client shared being able to relate to follow participants who also struggled with substance use as a means for decreasing boredom and improving ability to enjoy themselves. Client discussed that he had gone to a pink [employer] band with his and ended up blacking out group home through. He went on to discuss that it had been a bad night and felt bad regarding the previous night's events the next day. Client displaying progress in his ability to recognize potentially negative implications current substance use is having on his ability to manage mental health symptoms however continues to struggle with replacing these behaviors with healthier alternatives. Client recommended continued IOP treatment in order to further improve internalization and utilization of skills learned.] Narrative Note: []
--- NOTE | 2018-07-04 10:32 | BH.SGPN.GN ---
Behaviors/Verbalizations/Mental Status: [] Pt eye contact good, casually dressed, motor activity appropriate, speech normal rate and tone, mood euthymic, congruent affect, thoughts linear and intact, no evidence of delusions or hallucinations. Client Response/Progress/Benefit: [] Listened attentively to others and at times shared his thoughts and feelings with group. Client reported he often tells himself I cannot when the situation seems to be too difficult. Client related with the fixed first growth mindset because with fixed mindset there is little progress will be made given counseling focusing on what is not going well. Client shared growth mindset can result in increased hope and improve focus on what can do about given situation. Client seemed to benefit from learning about growth versus fixed mindset and how once that patterns can impact whether he difficult situations overcame or if stays stuck. Narrative Note: []
--- NOTE | 2018-07-04 11:30 | BH.PSA_ITS ---
Source of Information - Presenting Problems/Circumstances Problems, Referral Source, Mental Status, Client: Referred by [facility] after admission for suicidal ideations. Alert and oriented. Affect is flat. Mood is depressed. Thoughts are linear and logical. No angelika or delusions noted. Psychiatric Presentation - Psych Issues & Need for Admission Psychiatric Issues:: Suicidal ideations, anxiety, ruminations, psycho-social st ressors, erratic mood, anger management issues. Past Psychiatric History - MH Treatment Hx Treatment History: Currently linked with Dr. Jerica Wall for psychiatry for the past 5 years. Reports previous treatment through Dr. Salgado for psychiatry. Hx of marriage counseling. First hospitalization:: [place] 06/15/18 Most recent hospitalization:: refer above Medication Trials:: Yes ECT Therapy:: No Age of first mental health symptoms: Diagnosed with Intermittent Explosive Disorder in 2005. Describe (age, circumstance, etc) any past hospitalizations: Recent stressors related to loss of job in April 2018. Pt was fired after having an affair with a co-worker. Reports downward spiral since then which led to increased conflcits with and a DUI on 06/10/18. Current providers for mental health treatment (counselor, psychiatrist, case checker, etc.): Dr. Huma Wall- Providers for Health Living Development & Family of Origin - Childhood Significant Childhood Events: none reported - Family Who currently lives in your home?: Currently lives with of 40 years. Describe family composition:: Very conflicted relationship with . Pt has hx of several extra-marital affairs. Pt reports postive relationship with daughter (24) and son (29) - Family History Family Hx of Psychiatric or AOD Problems: Biological Sister- Depression, suicide attempt. Father- depression, alcohol abuse. Family hx of bipolar Ethnicity - Culture Do you identify yourself with any particular cultural, ethnic background, or community?: No - Sexuality Sexual Orientation: Heterosexual Spirituality - Faith Do you currently identify with any organized advent?: agnostic beliefs - raised strict jew- grandparents were preachers - Beliefs Is there a particular form of support from this community you can use for your recovery?: No Mental Status - Memory Recent Memory: Fair Remote Memory: Fair - Concentration Concentration: Poor - Eye Contact Eye Contact: Fair - Speech Speech: Articulate - Thought Process Thought Process: Logical, Ruminations Insight: Poor Judgment: Poor Behavior: Agitated - Orientation Orientation: Time, Person, Place, Situation - Appearance Appearance: Neat/clean - Mood Mood: Depressed, Sad, Irritable - Affect Affect: Flattened Suicide Assessment - Suicidal Ideation Have you ever felt like hurting yourself?: Yes Please explain:: reports fleeting suicidal thoughts which occur on a daily basis Were you using ETOH/drugs at the time?: Yes - Alcohol Suicidal Intentional Rating Scale (SIRS): Suicidal thoughts (past) - Currently reports passive suicidal ideations wouldn't mind if I just . Denies active suicidal ideations, plan, or intent. No hx of attempts. Had significant ideations and thoughts with methods last week. Contracts for safety. Protective factors reported. Physician Notification: If Active suicidal thoughts/Will not contract for safety is checked, contact physician and document in the Physician Notification section below. Violent Behavior/Abuse History - Homicidal Ideation Do you have any homicidal thoughts? If so, explain:: No Is there a known potential victim? If yes, who:: No - Abuse Have you ever been abused?: No - Life Events Describe significant life events: Was recently fired from his job. Recent DUI. Marriage conflicts. - Safety Do you ever feel threatened in your home? If yes, describe:: No Adult Social History - Age 20 to Present Describe your current support system:: , children, and friends Substance Use - Substance Substance Use Type: Alcohol - Specific Drugs What specific drugs have you used?: Alcohol - Extent of Use What quantity of substances have you used?: Alcohol- 6 pack of craft beers daily - Duration of Use How long have you used substances?: Since 23 - Last Usage What is the date and situation you last used?: continued use- 2-3 beers twice a week. - Withdrawal History Comments:: denies withdrawal effects - IV Substance Use Do you have a history of IV use?: denies Leisure/Social Activities - Interests What do you enjoy or might be interested in learning about?: Bipolar and personality disorders Education & Occupational Histo - Education What is your level of education?: Master Degree - Business Managment Do you have any learning disabilities?: No - Occupation List any current or past employment:: Currently unemployed. 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 Legal History - Records Have you had any past legal charges?: Yes - Theft (1993) used [employer] credit cards Do you have any current legal charges?: Yes - DUI (05/2018) Have you ever been incarcerated? If yes, describe:: No - Court Orders Have you had any past court orders for psychiatric treatment?: No Do you have a present court order for psychiatric treatment?: No Problem Checklist - Current Problem Areas Problem List: Depressed mood/sad, Anger/aggression, Impulsivity, Mood swings/hyperactivity, Other addictive behaviors, Additional psychosocial stressors Discharge Planning Needs - Anticipated Follow-Up Mental Health Center (Name/Phone Number):: [facility] Private Therapist/Psychiatrist:: Dr. Huma Wall- Providers for Health Living Other (to be determined): tbd Family and Caregiver Contacts:: Estela Jack- Release of Information Signed:: Yes Community Agency Contacts: tbd Dam Attendant Name/Phone Number: n/a Grain Distributor's Assessment - Client's Needs What are the client's feelings about the program?: Intially was apprehensive however reports that he is motivated to develop skills to better manage his emotions. What are the client's goals?: Decrease anxiety and ruminations. Increase education on Bipolar. Anger mgmt. learn healthy coping skills. What are the client's strengths?: intelligent, determined. Diagnoses - Diagnoses Diagnosis #1:: Bipolar 2 Diagnosis #2:: Alcohol Use Disorder, moderate Diagnosis #3:: Anxiety, unspecified Interpretive Summary - Interpretive Summary Interpretive Summary: Pt is a 48 year old male who was referred to [facility] by [facility] upon discharge on 06/21/18. Admitted to psychiatric unit on 06/15/18 due to suicidal ideations. Reports worsening depression, anxiety, and intermittent suicidal thoughts for the past two months. Acute stressor on 06/10/18 related to argument with and DUI which increased depression, hopelessness, and suicidal thoughts. Denies any hx of suicidal attempts. Denies HI or psychosis. Reports that he would drank on average 4-5 craft beers daily prior to DUI. Endorses frequent panic attacks due to psychosocial stressors which include conflicted marraige, recent extra-marital affairs, and unemployment. Treatment Plan Recommendations - Recommendations Guidelines: Special needs identified to be included in the development of an individualized treatment plan regarding past psychiatric history and treatment, developmental events, family relationships/events/culture, past and/or current educational, occupational, social, and residential experience, and legal status. Recommendations:: Due ot recent hospitaliztion, intermittent suicidal ideations, acute stressors and exacerbation of symptoms recommended [facility] level of care. On second day of PHP pt reported significant distress and suicidal ideations while at home. Safety planning was compelted (Refer to chart). Will continue to require PHP level of care.
--- NOTE | 2018-07-04 11:37 | BH.SGPN.GN ---
Behaviors/Verbalizations/Mental Status: [] Pt eye contact good, casually dressed, motor activity appropriate, speech normal rate and tone, mood depressed, congruent affect, thoughts linear and intact, no evidence of delusions or hallucinations. Client Response/Progress/Benefit: []Pt listened attentively to others and shared his thoughts and ideas during discussion. Pt reported it is important to be aware of one's actual limitations because sometimes he puts limits on himself that don't need to be there which result in not accomplishing a certain task. Pt shared putting too many limits on self can make it difficult to think outside the box. Pt shared another strategy that can help overcome what seems impossible is to create a plan that lists all the options then make a more detailed plan of action to give focus on direction. Pt seemed to benefit from group brainstorming strategies to overcome what seems impossible. Pt to continue PHP level of care to decrease depression, improve daily functioning, and prevent decompensation. Narrative Note: []
--- NOTE | 2018-07-04 16:31 | BH.MDN_ITS ---
Multi-Disciplinary Note - Note 45-min Individual Time Started:: 12:30 Date: 07/04/18 Purpose of session/treatment goals addressed:: Assess current symptoms and functioning. Review progress in PHP. Addressed treatment plan goal 1; objective 1 and 2. Reviewed safety plan. Eye Contact:: Good Motor Activity:: Appropriate Appearance:: Neat Speech:: Appropriate Mood:: Depressed Affect:: Congruent Thoughts:: Linear, Logical, No evidence of hallucinations/delusions noted Staff Interventions:: Reviewed thought record and cognitive distortions assignment. Provided education on anger management and gave assignment to complete anger mgmt plan. Reviewed safety plan. Client Response:: Pt reports that he has been present since Wednesday. Reports that he is taking things day by day and not getting caught up or ruminating on things that are outisde of his control. Reports that he did not have any overwhelming emotions this weekend. Fleeting passive thoughts of however nothing that he could not manage. Denies any anger outbursts or significant conflicts with . Admits to drinking in excess on Wednesday while at a concert, however regrets his actions. Not drinking to excess on daily basis. Limited motivation to remain sober stating that he likes drinking 2 craft beers daily. Receptive to education on anger mgmt plan. Was able to identify physiological signs to anger and appropriate times to use coping skills to decrease anger prior to exploding. Risks/Concerns:: Pt denies any suicidal ideations, plan, or intent. Reports fleeting passive thoughts of , however reports that he feels confident that he can manage emotions. Continues to follow safety plan, for the most part. Pt admits to drinking alcohol on pretty much daily basis on average 2-3 beers. Again encouraged to maintain sobriety. He is not sneaking the alcohol and is present when he drinks. Progress Toward Goals/Plan:: Progress noted since last week. Increased confidence in his ability to manage emotions. Denies suicidal ideations, plan, or intent. Appears motivated in individual sessions however motivation is inconsistent in group and outside of program. Continued conflict and communic ation issues with with no desire to complete couple's counseling. Not following through with recommendation to remain sober. Plan is to continue in PHP to maintain safety, stabilize mood, and prevent further decompensation. Time Stopped:: 13:15
--- NOTE | 2018-07-05 09:02 | BH.SGPN.GN ---
Behaviors/Verbalizations/Mental Status: [] Pt eye contact good, casually dressed, motor activity appropriate, speech normal rate and tone, mood euthymic, congruent affect, thoughts linear and intact, no evidence of delusions or hallucinations. Reviewed client?s symptom tracker, client indicated a 2 out of 5 for thoughts of suicide and a 0 out of 5 for intention. Compared to previous symptom trackers this score indicates a decrease in suicidal ideation and intention. PHP therapist will assess for lethality. Client Response/Progress/Benefit: [] Client reported he had a good day yesterday. Client shared after PHP he went on a hike with his which was relaxing and enjoyable. 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 Client reported he has several phone interviews and one on site interview. 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 Client shared the rest of his night went well because he went to the gym and wants to be with his . Client identified his emotions morning to be positive. Client reported his stressor is uncertainty of what will happen with his DUI. Client demonstrating progress as evidenced by him being active with hiking and going to the gym. Client to continue [facility] level of care to maintain progress, increase healthy coping skills, and prevent decompensation. Narrative Note: []
--- NOTE | 2018-07-05 10:05 | BH.SGPN.GN ---
Behaviors/Verbalizations/Mental Status: []Client alert and oriented, neatly dressed and groomed. Eye contact good. Motor activity appropriate. Speech within normal limits. Affect congruent to mood, mood euthymic Thoughts linear, logical, no signs of hallucinations or delusions. Client Response/Progress/Benefit: []Client responded well to session, active participant. Client shared effective communication is needed to better relationships. Client stated ?when someone is emotional that makes me shut down? as barriers to communication. Client contributed to discussion of the different communication styles. Client reported he use the aggressive communication style because ?people stop and listen.? Client had a difficult time identifying cons of this communication style at first, but then recognized if he uses this all the time it could negatively impact relationships. Client appeared to benefit from gaining awareness of how communication styles impact mental health and relationships. ?Client to continue PHP to prevent decompensation and increase symptom management.
--- NOTE | 2018-07-05 11:10 | BH.SGPN.GN ---
Behaviors/Verbalizations/Mental Status: []Client alert and oriented, neatly dressed and groomed. Eye contact good. Motor activity appropriate. Speech within normal limits. Affect congruent-laughing, mood euthymic. Thoughts linear, logical, no signs of hallucinations or delusions. Client Response/Progress/Benefit: []Client responded well to session, active participant. Client engaged in the communication activity and identified barriers that impact one?s communication with supports. Client stated how one interprets something could be a barrier to communication as ?we all have different perspectives.? ?Client helped the group identify strategies to improve communication including: being aware of tone of voice and body language, patience, and asking for clarification. Client appeared to benefit from practicing effective communication and gaining awareness of personal barriers. Client to continue PHP as he has reports some improvement in mood, but client continues to struggle with ruminations and awareness of warning signs.
--- NOTE | 2018-07-05 13:44 | BH.MDN ---
Multi-Disciplinary Note - Note 30-min Individual Time Started:: 12:20 Date: 07/05/18 Purpose of session/treatment goals addressed:: Used the session to assess current functioning and symptoms. Addressed treatment plan 1 objectives 2 and 3. Eye Contact:: Good Motor Activity:: Appropriate Appearance:: Neat Speech:: Appropriate Mood:: Euthymic Affect:: Full Thoughts:: Linear, Logical, No evidence of hallucinations/delusions noted Staff Interventions:: Utilized ME techniques to elicit change behaviors. Reviewed and processed pt's thought logged. Praised pt for progress and effort. Client Response:: Pt reports that his mood is positive today. Reviewed his thought log from last night regarding a conflict with . Able to identify his thoughts, emotions, and behaviors. He also utilized some conflict managment techniques to ensure the argument did not escalate. Overall he managed the situation well utilizing skills learned in group and individual. He admits that continues to be a trigger for anger, depression, and anxiety. According to pt continues to have trust issues and struggles with his extra-marital affairs which often leads to arguements. Pt able to identify strategies to manage triggers and de-esculate mood. Pt did not drink last night and is following safety plan. Denies any suicidal ideations, plan, or intent. Reports fleeting SI which only lasts seconds and he feels that he can control thoughts. Able to see progress. Pt also reading book on Bipolar and he is begining to agree with that diagnosis. Risks/Concerns:: No risks or concerns noted today. Progress Toward Goals/Plan:: Pt continues to report progress towards goals. Was more motivated today in indiviudal and group sessions. , legal issues, and unemployment continue to be daily stressors which can cause flucuations in depression, anger, and anxiety however he reports that he is manaing mood swings more effectively this week. Will continue in [facility] to maintain safety and stablize mood. Pt will not be in program tomorrow as he has appt with outpatient psychiatrist and job interview. Tenative discharge from [facility] on Wednesday. Time Stopped:: 12:50
--- NOTE | 2018-07-05 13:58 | BH.MDN_ITS ---
Multi-Disciplinary Note - Note 30-min Individual Time Started:: 12:20 Date: 07/05/18 Purpose of session/treatment goals addressed:: Used the session to assess current functioning and symptoms. Addressed treatment plan 1 objectives 2 and 3. Eye Contact:: Good Motor Activity:: Appropriate Appearance:: Neat Speech:: Appropriate Mood:: Euthymic Affect:: Full Thoughts:: Linear, Logical, No evidence of hallucinations/delusions noted Staff Interventions:: Utilized DE techniques to elicit change behaviors. Reviewed and processed pt's thought logged. Praised pt for progress and effort. Client Response:: Pt reports that his mood is positive today. Reviewed his thought log from last night regarding a conflict with . Able to identify his thoughts, emotions, and behaviors. He also utilized some conflict managment techniques to ensure the argument did not escalate. Overall he managed the situation well utilizing skills learned in group and individual. He admits that continues to be a trigger for anger, depression, and anxiety. According to pt continues to have trust issues and struggles with his extra-marital affairs which often leads to arguements. Pt able to identify strategies to manage triggers and de-esculate mood. Pt did not drink last night and is following safety plan. Denies any suicidal ideations, plan, or intent. Reports fleeting SI which only lasts seconds and he feels that he can control thoughts. Able to see progress. Pt also reading book on Bipolar and he is begining to agree with that diagnosis. Risks/Concerns:: No risks or concerns noted today. Progress Toward Goals/Plan:: Pt continues to report progress towards goals. Was more motivated today in indiviudal and group sessions. , legal issues, and unemployment continue to be daily stressors which can cause flucuations in depression, anger, and anxiety however he reports that he is manaing mood swings more effectively this week. Will continue in [facility] to maintain safety and stablize mood. Pt will not be in program tomorrow as he has appt with outpatient psychiatrist and job interview. Tenative discharge from [facility] on Wednesday. Time Stopped:: 12:50
--- NOTE | 2018-07-07 09:05 | BH.SGPN.GN ---
Behaviors/Verbalizations/Mental Status: []Client alert and oriented, neatly dressed and groomed. Eye contact good. Motor activity appropriate. Speech within normal limits. Affect congruent, mood euthymic, anxious. Thoughts linear, logical, no signs of hallucinations or delusions. Reviewed client?s symptom tracker. Client indicated 2 out of 5 for thoughts of suicide and 1 out of 5 for risk of suicide. Client denies plan, improved mood, and was future oriented throughout session AEB his report of looking forward to job searching. Client meeting with his individual therapist today. Client Response/Progress/Benefit: []Client responded well to session, active participant. Client reports feeling ?optimistic about the job, but apprehensive as well.? Client identified three positives and a stressor for today. Client?s positives included having a good appointment with the psychiatrist yesterday, having a good phone interview, and going hiking with his yesterday. Client shared the DUI is his ongoing stressor as client is ?waiting for it to oliver out.? Client shared while he waits to hear back about the job he will challenge negative ?what if? thoughts that keep client ruminating. Client appeared to benefit from reflecting on increased mood stability compared to last week. Client to continue PHP to prevent decompensation, increase mood stability, and improve emotional regulation skills.
--- NOTE | 2018-07-07 14:19 | BH.MDN ---
Multi-Disciplinary Note - Note 45-min Individual Time Started:: 12:20 Date: 07/07/18 Purpose of session/treatment goals addressed:: Assessed currently functioning and symptoms. Addressed all treatment goals today. Eye Contact:: Good Motor Activity:: Appropriate Appearance:: Neat Speech:: Appropriate Mood:: Anxious Affect:: Congruent Thoughts:: Linear, Logical, No evidence of hallucinations/delusions noted Staff Interventions:: Utilized AR techniques to elicit change beahviors. At pt's request provided education on personality disorders specifically anti-social personality disorder. Reviewed coping and calming strategies for anxiety, anger, and depression. Client Response:: Pt reports that his meeting with [facility] psychiatrist Dr. Wall went well yesterday. He reports that she agreed with the diagnosis from [place] and Dr. Segal of Bipolar 2 disorder. He reports that they discussed the diagnosis in more detail as well as personality disorder. He had several questions about PD which we discussed. His current plan is to start the Depakote and is agreeable. Continued conflict with however he feels that with skills learned in [facility] he is managing communications and verbal arguements more effectively. Continues to ruminate and what if regarding current legal status and unemployment. Denies any suicidal ideations, plan, or intent. Reports that he will occasionally have passive thoughts of however feels that these thoughts are fleeting. Obtained driving priveledges. Reviewed thought records strategies to calm and reframe thoughts. Risks/Concerns:: No risks or concerns noted. Progress Toward Goals/Plan:: Pt continues to make progress in [facility]. Reports no suicidal ideations, however continues to reports fleeting passive thoughts of . Reports that he is managing his anger, depression, and anxiety more effectively. Increased coping skills and strategies to manage emotions. Pt is reading book on Bipolar and is increasing awareness and insight. Will continue in [facility] with plan to discharge tomorrow and stepping down to IOP next week. Time Stopped:: 13:05
--- NOTE | 2018-07-07 14:35 | BH.MDN_ITS ---
Multi-Disciplinary Note - Note 45-min Individual Time Started:: 12:20 Date: 07/07/18 Purpose of session/treatment goals addressed:: Assessed currently functioning and symptoms. Addressed all treatment goals today. Eye Contact:: Good Motor Activity:: Appropriate Appearance:: Neat Speech:: Appropriate Mood:: Anxious Affect:: Congruent Thoughts:: Linear, Logical, No evidence of hallucinations/delusions noted Staff Interventions:: Utilized AR techniques to elicit change beahviors. At pt's request provided education on personality disorders specifically anti-social personality disorder. Reviewed coping and calming strategies for anxiety, anger, and depression. Client Response:: Pt reports that his meeting with out[facility] psychiatrist Dr. Wall went well yesterday. He reports that she agreed with the diagnosis from [place] and Dr. Segal of Bipolar 2 disorder. He reports that they discussed the diagnosis in more detail as well as personality disorder. He had several questions about PD which we discussed. His current plan is to start the Depakote and is agreeable. Continued conflict with however he feels that with skills learned in [facility] he is managing communications and verbal arguements more effectively. Continues to ruminate and what if regarding current legal status and unemployment. Denies any suicidal ideations, plan, or intent. Reports that he will occasionally have passive thoughts of however feels that these thoughts are fleeting. Obtained driving priveledges. Reviewed thought records strategies to calm and reframe thoughts. Risks/Concerns:: No risks or concerns noted. Progress Toward Goals/Plan:: Pt continues to make progress in [facility]. Reports no suicidal ideations, however continues to reports fleeting passive thoughts of . Reports that he is managing his anger, depression, and anxiety more effectively. Increased coping skills and strategies to manage emotions. Pt is reading book on Bipolar and is increasing awareness and insight. Will continue in [facility] with plan to discharge tomorrow and stepping down to IOP next week. Time Stopped:: 13:05
--- NOTE | 2018-07-07 14:59 | BH.COMM ---
Communication Note - Communication with Client Communication Note: Pt had scheduled day off from [facility] to meet with outpatient psychiatrist
--- NOTE | 2018-07-07 15:01 | BH.COMM_ITS ---
Communication Note - Communication with Client Communication Note: Pt had scheduled day off from [facility] to meet with outpatient psychiatrist
--- NOTE | 2018-07-08 09:01 | BH.SGPN.GN ---
Behaviors/Verbalizations/Mental Status: [Client maintained good eye contact. Casually and comfortably dressed, appropriate grooming/hygiene. Motor activity WNL - appearing more relaxed and open in body language. Client speech was a normal rate and tone, mood euthymic, positive. Client affect congruent with mood, thoughts linear and logical, no evidence of delusions or hallucinations. Therapist reviewed client?s symptom tracker to assess for intensity of mental health symptoms and identify risk for suicide. Client reports suicidal ideation as 2/5 which is typical for client baseline. He denies any plan, or intent to date. Client to meet with individual IOP therapist following group on this date.] Client Response/Progress/Benefit: [Client receptive of session and engaged throughout. He did well to openly discuss thoughts, sx management, and stressors with the group. CLient provided supportive feedback and encuragement from the group. He discussed that he had a pretty good day on the previous date as client had been able to drive by himself for the first time in awhile as well as finally got his car out of the shop. CLient indicated that the increase in independance and decreased reliance on his has aided in improving his mood. He further described that his positive mood and outlook aided in preventing him from becoming irritable or impatient on the road this morning. CLient went on to indicate looking forward to going to a tribute concert with his . CLient benefitted form being challenged by fellow participants as to how he is going to prevent consuming unhealthy amounts of alcohol as client has identified this as a problem in the past. CLient displayed progress in his reports of creating an alcohol safety plan with his . Recommended continued IOP tx to further improve emotion regulation and healthy decision making.] Narrative Note: []
--- NOTE | 2018-07-08 10:12 | BH.SGPN.GN ---
Behaviors/Verbalizations/Mental Status: []Client alert and oriented, neatly dressed and groomed. Eye contact fair. Motor activity appropriate. Speech within normal limits. Affect brighter than previous sessions, mood euthymic, anxious. Thoughts linear, logical, no signs of hallucinations or delusions. Client Response/Progress/Benefit: []Client responded well to session, active participant. Client reported some stress is positive as it can give one motivation, but chronic stress can lead to increased depression, anxiety, and physical problems. Client discussed with the group how stress impacts a person emotionally, physically, behaviorally, and cognitively. Client identified current stressors in his stress jar to be finding a job, DUI, weather, money, and managing anxiety. Client reported ?when I was doing I kept wanting to add and create stressors.? Client stated sometimes feeling overwhelmed with stress can feel ?normal? if it is what a person has been used to. Client appeared to benefit from identifying current stressors and gaining awareness that client finds feeling overwhelmed as normal. Progress noted as shown by client?s increased mood stability, but he can continue to benefit from IOP to improve emotional regulation and reduce anger.
--- NOTE | 2018-07-08 11:16 | BH.SGPN.GN ---
Behaviors/Verbalizations/Mental Status: []Client alert and oriented, neatly dressed and groomed. Eye contact good. Motor activity appropriate. Speech within normal limits. Affect congruent- smiling and joking, mood euthymic, anxious. Thoughts linear, logical, no signs of hallucinations or delusions. Client Response/Progress/Benefit: []Client responded well to session, engaged in activity and discussion. Client participated in the group activity and the group failed in accomplishing the goal. Client stated, ?we didn?t use all our resources and we got stuck.? The group shared not using all the resources represents the barrier of having a hard time asking for help when dealing with stress. Client identified building personal relationships as a stressor in client?s control. Client learned about the four A?s of reducing stress. Client set a stress-management goal for the weekend which was to work on acceptance and that change takes time. Client appeared to benefit from learning stress management skills and from setting a stress-management goal. Client to discharge from [facility] and start IOP on Wednesday as client has made gains, but he can continue to increase mood stability.
--- NOTE | 2018-07-08 12:26 | PCM.PN.BLA ---
Progress Note Patient is seen in follow-up for bipolar 2 disorder, alcohol use disorder, anxiety, and cluster B personality traits. History is been obtained per interview with patient, discussion with staff, review of chart. Case discussed with treatment team. Chief complaint Mood symptoms and anxiety Interim history Patient reports that his mood is overall improved but dips down once in a while. He reports mild to moderate depressive symptoms which are intermittent. He acknowledges Dr. Wall is in agreement regarding diagnosis of bipolar disorder. Agreed to start Depakote after discussion with Dr. Wall. Ongoing ruminative anxiety regarding dynamics with . Anxiety regarding upcoming legal issues for DUI. Remains forward thinking. To recent job interviews. Fleeting suicidal thoughts but decreased intensity. No suicide plan or intent. Feels able to maintain safety. No homicidal ideation. No symptoms consistent with psychosis. Consumed alcohol on Wednesday to the point of blacking out and reports that he was irritable with his after drinking. Continues to consume some alcohol during the week. Consumes 2 beers on Wednesday, one beer on Wednesday and 2 beers yesterday. Encouraged alcohol abstinence. Sleeping from midnight to 7:30 AM. Appetite normal. Denies nausea vomiting or diarrhea. Mental status exam Alert and oriented. No acute distress. Ambulatory with normal gait and station. Casually dressed and groomed. Appropriate hygiene. Cooperative with interview. Good eye contact. No psychomotor agitation or retardation. Mood depressed. Affect congruent. Speech is clear and of regular rate and volume. Language fluent. Thought process organized. Associations logical. Thought content significant for ruminative anxiety and themes of depression. Passive fleeting suicidal ideation. No suicide plan or intent. Feels able to maintain safety. No homicidal ideation related to her detected. No evidence of psychosis related to her detected. Immediate recent and remote memory grossly intact. Attention and concentration are fair. Estimated intelligence fund of knowledge average. Judgment and insight are limited to fair. Diagnosis Bipolar 2 disorder Alcohol use disorder moderate Anxiety unspecified Rule out antisocial personality traits, cluster B traits Hypertension Hyperlipidemia Plan Patient has participated in [facility] and made progress. He is appropriate for discharge from [facility] and admission to [facility]. Ongoing treatment in a structured setting is necessary to maintain gains and prevent decompensation. Risk-benefit alternative of medications discussed with patient. Patient acknowledges understanding. Continue Depakote ER 500 mg p.o. nightly for 2 nights and then increase to 1000 mg p.o. nightly. Requisition for Depakote level and lab work provided. Ongoing follow-up with Dr. Wall. Extensive discussion regarding alcohol abstinence. Patient acknowledges understanding and is in agreement with plan. Feels able to maintain safety. Agrees to seek help or emergency care feeling unsafe to self or others. 16 minutes of Insight oriented psychotherapy provided regarding personality traits in dynamics with .
--- NOTE | 2018-07-08 12:36 | PN_ITS ---
Progress Note Patient is seen in follow-up for bipolar 2 disorder, alcohol use disorder, anxiety, and cluster B personality traits. History is been obtained per interview with patient, discussion with staff, review of chart. Case discussed with treatment team. Chief complaint Mood symptoms and anxiety Interim history Patient reports that his mood is overall improved but dips down once in a while. He reports mild to moderate depressive symptoms which are intermittent. He acknowledges Dr. Wall is in agreement regarding diagnosis of bipolar dis order. Agreed to start Depakote after discussion with Dr. Wall. Ongoing ruminative anxiety regarding dynamics with . Anxiety regarding upcoming legal issues for DUI. Remains forward thinking. To recent job interviews. Fleeting suicidal thoughts but decreased intensity. No suicide plan or intent. Feels able to maintain safety. No homicidal ideation. No symptoms consistent with psychosis. Consumed alcohol on Wednesday to the point of blacking out and reports that he was irritable with his after drinking. Continues to consume some alcohol during the week. Consumes 2 beers on Wednesday, one beer on Wednesday and 2 beers yesterday. Encouraged alcohol abstinence. Sleeping from midnight to 7:30 AM. Appetite normal. Denies nausea vomiting or diarrhea. Mental status exam Alert and oriented. No acute distress. Ambulatory with normal gait and station. Casually dressed and groomed. Appropriate hygiene. Cooperative with interview. Good eye contact. No psychomotor agitation or retardation. Mood depressed. Affect congruent. Speech is clear and of regular rate and volume. Language fluent. Thought process organized. Associations logical. Thought content significant for ruminative anxiety and themes of depression. Passive fleeting suicidal ideation. No suicide plan or intent. Feels able to maintain safety. No homicidal ideation related to her detected. No evidence of psychosis related to her detected. Immediate recent and remote memory grossly intact. Attention and concentration are fair. Estimated intelligence fund of knowledge average. Judgment and insight are limited to fair. Diagnosis Bipolar 2 disorder Alcohol use disorder moderate Anxiety unspecified Rule out antisocial personality traits, cluster B traits Hypertension Hyperlipidemia Plan Patient has participated in [facility] and made progress. He is appropriate for discharge from [facility] and admission to [facility]. Ongoing treatment in a structured setting is necessary to maintain gains and prevent decompensation. Risk-benefit alternative of medications discussed with patient. Patient acknowledges understanding. Continue Depakote ER 500 mg p.o. nightly for 2 nights and then increase to 1000 mg p.o. nightly. Requisition for Depakote level and lab work provided. Ongoing follow-up with Dr. Wall. Extensive discussion regarding alcohol abstinence. Patient acknowledges understanding and is in agreement with plan. Feels able to maintain safety. Agrees to seek help or emergency care feeling unsafe to self or others. 16 minutes of Insight oriented psychotherapy provided regarding personality traits in dynamics with .
--- NOTE | 2018-07-08 14:18 | BH.MDN ---
Multi-Disciplinary Note - Note 30-min Individual Time Started:: 12:20 Date: 07/08/18 Purpose of session/treatment goals addressed:: Assessed current functioning and symptoms. Reviewed progress in PHP. Adressed treatment plan goals for [facility] Eye Contact:: Good Motor Activity:: Appropriate Appearance:: Neat Speech:: Appropriate Mood:: Anxious, Depressed Affect:: Congruent Thoughts:: Linear, Logical, No evidence of hallucinations/delusions noted Staff Interventions:: Utilized ID techniques to elict change behaviors. Reviewed progress and treatment plan goals. Client Response:: Reviewed progress in PHP and treatment goals. Pt able to identify and utilize two healthy coping strategies to manage depression and anger. Skills identified are thought stopping/reframing, mindfulness, distraction, and conflict do's and don'ts. Pt has completed safety plan. Able to identify 2-3 calming skills for anxiety which include breathing, mindfulness, affirmations, stress-reduction skills, and thought stopping. Pt has met goals for PHP. Denies any suicidal ideations, plan, or intent. Passive thoughts of which are fleeting. Reports decreased conflict with and increased communication and postive interactions. Risks/Concerns:: no risks or concerns noted. Progress Toward Goals/Plan:: Progress noted in PHP. Has met treatment plan goals and will be discharged from [facility]. Recommended to step-down to [facility] on 07/11/18. Time Stopped:: 12:50
--- NOTE | 2018-07-08 14:45 | BH.MDN_ITS ---
Multi-Disciplinary Note - Note 30-min Individual Time Started:: 12:20 Date: 07/08/18 Purpose of session/treatment goals addressed:: Assessed current functioning and symptoms. Reviewed progress in PHP. Adressed treatment plan goals for [facility] Eye Contact:: Good Motor Activity:: Appropriate Appearance:: Neat Speech:: Appropriate Mood:: Anxious, Depressed Affect:: Congruent Thoughts:: Linear, Logical, No evidence of hallucinations/delusions noted Staff Interventions:: Utilized [place] techniques to elict change behaviors. Reviewed progress and treatment plan goals. Client Response:: Reviewed progress in PHP and treatment goals. Pt able to identify and utilize two healthy coping strategies to manage depression and anger. Skills identified are thought stopping/reframing, mindfulness, distraction, and conflict do's and don'ts. Pt has completed safety plan. Able to identify 2-3 calming skills for anxiety which include breathing, mindfulness, affirmations, stress-reduction skills, and thought stopping. Pt has met goals for PHP. Denies any suicidal ideations, plan, or intent. Passive thoughts of which are fleeting. Reports decreased conflict with and increased communication and postive interactions. Risks/Concerns:: no risks or concerns noted. Progress Toward Goals/Plan:: Progress noted in PHP. Has met treatment plan goals and will be discharged from [facility]. Recommended to step-down to [facility] on 07/11/18. Time Stopped:: 12:50
--- NOTE | 2018-07-08 14:45 | BH.DS ---
Discharge Summary - Demographics Date of Admission:: 06/27/18 Discharge Date: 07/08/18 Presenting Problems at Admission:: Pt is a 48 year old male who was referred to [facility] by [facility] upon discharge on 06/21/18. Admitted to psychiatric unit on 06/15/18 due to suicidal ideations. Reports worsening depression, anxiety, and intermittent suicidal thoughts for the past two months. Acute stressor on 06/10/18 related to argument with and DUI which increased depression, hopelessness, and suicidal thoughts. Denies any hx of suicidal attempts. Denies HI or psychosis. Reports that he would drank on average 4-5 craft beers daily prior to DUI. Endorses frequent panic attacks due to psychosocial stressors which include conflicted marraige, recent extra-marital affairs, and unemployment. Discharge Diagnoses:: Bipolar 2 Disorder Reason for Discharge:: Pt met all treatment plan goals. No longer meets criteria for this level of care. - Treatment Progress During Treatment & Response: Pt consistenly attended [facility] and has shown increased participation in group/individual counseling. Pt able to identify and utilize two healthy coping strategies to manage depression and anger. Skills identified are thought stopping/reframing, mindfulness, distraction, and conflict do's and don'ts. Pt has completed safety plan. Able to identify 2-3 calming skills for anxiety which include breathing, mindfulness, affirmations, stress-reduction skills, and thought stopping. Pt has met goals for PHP. Denies any suicidal ideations, plan, or intent. Passive thoughts of which are fleeting. Reports decreased conflict with and increased communication and postive Issues Still to be Addressed:: Depression, fleeting SI, Anxiety, Anger Mgmt issues, conflict with , and medication management. Discharge Recommendations/Instructions:: Recommended to step-down to IOP level of care to maintain safety, prevent decompensation, and stabilize mood. Pt agreeable with plan to start IOP on 07/11/18 Discharge Handout: Complete Discharge Handout with client on aftercare options and continuity of care.
--- NOTE | 2018-07-08 15:04 | BH.DS_ITS ---
Discharge Summary - Demographics Date of Admission:: 06/27/18 Discharge Date: 07/08/18 Presenting Problems at Admission:: Pt is a 48 year old male who was referred to [facility] by [facility] upon discharge on 06/21/18. Admitted to psychiatric unit on 06/15/18 due to suicidal ideations. Reports worsening depression, anxiety, and intermittent suicidal thoughts for the past two months. Acute stressor on 06/10/18 related to argument with and DUI which increased depression, hopelessness, and suicidal thoughts. Denies any hx of suicidal attempts. Denies HI or psychosis. Reports that he would drank on average 4-5 craft beers daily prior to DUI. Endorses frequent panic attacks due to psychosocial stressors which include conflicted marraige, recent extra-marital affairs, and unemployment. Discharge Diagnoses:: Bipolar 2 Disorder Reason for Discharge:: Pt met all treatment plan goals. No longer meets criteria for this level of care. - Treatment Progress During Treatment & Response: Pt consistenly attended [facility] and has shown increased participation in group/individual counseling. Pt able to identify and utilize two healthy coping strategies to manage depression and anger. Skills identified are thought stopping/reframing, mindfulness, distraction, and conflict do's and don'ts. Pt has completed safety plan. Able to identify 2-3 calming skills for anxiety which include breathing, mindfulness, affirmations, stress-reduction skills, and thought stopping. Pt has met goals for PHP. Denies any suicidal ideations, plan, or intent. Passive thoughts of which are fleeting. Reports decreased conflict with and increased communication and postive Issues Still to be Addressed:: Depression, fleeting SI, Anxiety, Anger Mgmt issues, conflict with , and medication management. Discharge Recommendations/Instructions:: Recommended to step-down to IOP level of care to maintain safety, prevent decompensation, and stabilize mood. Pt agreeable with plan to start IOP on 07/11/18 Discharge Handout: Complete Discharge Handout with client on aftercare options and continuity of care.
[2018-08-11 16:29] VITALS: BP 116/79; PULSE 68; RESP 14
== END 2018-07-08 14:00 | disposition home or self-care (01) ==
LOC: BHPHP 09:00
PROVIDERS: Visit Provider Psychiatry & Neurology Psychiatry
DX: F31.81 Bipolar II disorder (principal); F10.20 Alcohol dependence, uncomplicated; F41.9 Anxiety disorder, unspecified; I10 Essential (primary) hypertension; E78.5 Hyperlipidemia, unspecified; Z79.899 Other long term (current) drug therapy
CPT/HCPCS: H0035; 90832; 90834; 90837; 90847; G0410

== ENCOUNTER 2018-07-11 09:00 | Outpatient (RCR) | payer BC, SELFPAY ==
--- NOTE | 2018-07-11 09:05 | BH.SGPN.GN ---
Behaviors/Verbalizations/Mental Status: []Client alert and oriented, neatly dressed and groomed. Eye contact good. Motor activity appropriate. Speech within normal limits. Affect bright, mood anxious. Thoughts linear, logical, no signs of hallucinations or delusions. Reviewed client?s symptom tracker, client indicated a 1 out 5 (low) for thoughts of suicide and a 0 out of 5 (none) for intent or risk of suicide as of 07/11/18. Client Response/Progress/Benefit: []Client responded well to session, engaged in discussion. Client reports feeling ?anxious? today due to having an upcoming interview this Wednesday. Client was receptive to strategies provided by the group on how to manage negative thinking and anxious throughout the week. Client stated he had a good weekend and identified numerous positives including going to a concert, meeting the lead guitarist, going to a forester aide, and controlling his drinking. Client reported he also feels less angry since his medication change which is a positive. Job searching continues to be client?s ongoing stressor. Client appeared to benefit from reflecting on progress and gaining support from peers. Progress noted as shown by client?s report of reduced anger, but client can continue to benefit from increased mood stability and emotional regulation skills.
--- NOTE | 2018-07-12 10:16 | BH.COMM ---
Communication Note - Communication with Client Communication Note: Client called to cancel his scheduled IOP appointment today due to feeling increased fatigue and foggy this morning. Client shared he will be in for group tomorrow, 07/13/18.
--- NOTE | 2018-07-13 09:10 | BH.SGPN.GN ---
Behaviors/Verbalizations/Mental Status: [] Eye contact is good. Motor activity is appropriate. Appearance is neat. Speech is Appropriate. Mood is anxious. Affect is congruent. Thoughts are linear and logical. No evidence of psychosis. Reviewed daily check in sheet which noted 2/5 for suicidal thoughts and 0/5 for intention. Primary therapist aware. Client Response/Progress/Benefit: [] Pt spoke very little during group process. Provided minimal feedback to peers however was engaged at times. Reports feeling tired and frustrated for the past few days. States that he slept almost all day yesterday which effected his ability to sleep last night. Choose not to elaborate much more. Group provided support and encouragement. Regression noted per pt report. Will continue in IOP to maintain safety, stabilize mood, and improve daily functioning. Narrative Note: []
--- NOTE | 2018-07-13 15:02 | BH.MDN ---
Multi-Disciplinary Note - Note 30-min Individual Time Started:: 12:30 Date: 07/13/18 Purpose of session/treatment goals addressed:: Assessed current symptoms and functioning. Reviewed progress in IOP. Began to discuss IO treatment plan goals. Eye Contact:: Good Motor Activity:: Appropriate Appearance:: Neat Speech:: Appropriate Mood:: Irritable, Depressed Affect:: Congruent Thoughts:: Linear, Logical, No evidence of hallucinations/delusions noted Staff Interventions:: Utlized [place] techniques to elicit change behaviors. Reviewed thought record for ruminating thoughts. Gave some examples of how to reframe. Introduced additional strategies to thought-stop. Client Response:: Pt reported increased fatigue and sleep since this weekend. Reports increase in depressive symptoms as well which he believes is related to ruminating on past relationship. Increased fatigue and inactivity has led to more time for my mind to wonder Reports ruminating the most last evening prior to falling asleep. Has plan to stay awake today to get his sleeping schedule back on track. He discussed and reviewed his thought-reframing strategies. Reports fleeting passive thoughts of lasting no more than a couple minutes which he feels he can control stating nothing I can't manage. Relationship with is improving with no reported significant conflicts over the weekend and week. Situational anxiety related to legal issues and employment which are expected. Risks/Concerns:: No risks of concerns noted. Fleeting passive SI (few minutes) with no thoughts of methods, plan, or intent. Feels he can control these thoughts. Progress Toward Goals/Plan:: Regression noted per pt report with increased depression, fatigue, and ruminating thoughts since last week. No specific trigger reported however pt believes increased fatigue has decreased motivation, energy, and activity resuling in increased dwelling. Continues to be motivated and future-oriented. Upcoming job interview this weekend. Plan is too continue in IOP to maintain safety, prevent decompensation, and improve functioing. Time Stopped:: 13:01
--- NOTE | 2018-07-13 15:16 | BH.MTP ---
Master Treatment Plan - Patient Information Program Physician:: Dr. Gayatri Segal Primary Therapist:: Radames Yip - Psychiatric Diagnoses Psychiatric Diagnoses:: Bipolar 2 Disorder. Alcohol Use disorder, moderate. Anxiety, unspecified. R/O Antisocial Personality Traits Diagnosis Code(s):: F31.8 - Estimated LOS Estimated LOS (in weeks):: 6 Problem/Goal #1 - Problem/Goal #1 Stated Goal:: Client will increase mood stability and decrease depressive symptoms, anger/irritability, and suicidal ideation due to Bipolar I through Intensive Outpatient Program. Description of Barriers: psychosocial stressors (unemployment, marital conflict, legal issues, and extra-marital affair). Stigma associated with symptoms. Functional Impact: Erratic mood, anger, and depression affecting daily functioning and interfering with familial, social, and vocational functioning (contributed to being fired from job). Fleeting suicidal thoughts. 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 - Objectives Objective #1 Stated Objective: Client will identify 5 physical warning signs of anger and 5 ways to calm and manage anger. Interventions: Therapist will provide worksheet to track situations, thoughts, feelings, and actions associated with moments of anger, irritation, or disappointment. Through individual therapy and group work will help client explore warning signs to anger and ager management strategies. Discharge Criteria: Client will have met this goal after documenting anger journal for several weeks showing insight into anger triggers, warning signs, and effective ways to cope or manage anger Target Date: 08/24/18 Review Date: 08/12/18 Objective #2 Stated Objective: Identify and replace 3-4 negative self-talk messages or thinking patterns that reinforce depressive symptoms. Will be able to challenge and replace negative thoughts. Interventions: hrough groups and individual therapy, pt. will be provided with education on cognitive distortions, schemas, mistaken beliefs, and identifying and combating negative self-talk. Therapist will help pt. explore connection between thoughts, feelings, and actions. Discharge Criteria: Pt. will be able to identify 2-3 negative thinking patterns and be able to effectively stop, challenge, or cope with those negative thoughts. Target Date: 08/24/18 Review Date: 08/12/18 Problem/Goal #2 - Problem/Goal #2 Stated Goal:: Stabilize anxiety level through decreasing ruminations and increasing ability to function on daily basis through Intensive Outpatient Services Description of Barriers: Stigma, psychosocial stressors, ruminates on loss of job, legal issues and extra-martial affair Functional Impact: Ruminations and anxiety impact pt on a daily basis and are interfering with current marriage and quality of life. Goal Relevant Strengths/Supports: Intelligent, appears motivated to increase awareness and skills to better manage anxiety - Objectives Objective #1 Stated Objective: Pt will develop his own individualized anxiety management plan to implement during times of rumination, overwhelming stress, and anxiety Interventions: Through group and individual sessions pt will be provided with education on anxiety and effective coping skills. Will explore more in causes and triggers to anxiety and ruminative thoughts as well as obstacles to overcome anxiety. Discharge Criteria: Pt will have completed his own indivudalized anxeity management plan which include a step by step concrete plan to cope with panic, ruminations, and overwhelming stress. Target Date: 08/24/18 Review Date: 08/12/18
== END 2018-07-13 23:59 ==
LOC: BHIOP 09:00
PROVIDERS: Referring Provider Psychiatry & Neurology Psychiatry; Visit Provider Psychiatry & Neurology Psychiatry
DX: F31.81 Bipolar II disorder (principal); F10.20 Alcohol dependence, uncomplicated; F41.9 Anxiety disorder, unspecified
CPT/HCPCS: H0035; 90832; 90853

== ENCOUNTER 2018-07-18 09:00 | Outpatient (RCR) | payer BC, SELFPAY ==
--- NOTE | 2018-07-18 09:02 | BH.SGPN.GN ---
Behaviors/Verbalizations/Mental Status: []Client alert and oriented, neatly dressed and groomed. Eye contact good. Motor activity appropriate. Speech within normal limits. Affect congruent, mood euthymic, anxious. Thoughts linear, logical, no signs of hallucinations or delusions. Reviewed client?s symptom tracker, client marked 2 out of 5 for suicidal ideation. Client denies plan and intent as of 07/18/18. Client's individual IOP therapist was informed of symptom tracker. Client Response/Progress/Benefit: []Client responded well to session, receptive to feedback from peers. Client reports feeling ?hopeful? today as client had a good weekend. Client shared his current positives are he had a good job interview last Wednesday and a pleasant trip to [place] with his . Client reported he has another job interview today which he is both anxious and excited about. Client stated he is conflicted about next steps should he get a job offer from the job interview from Wednesday. Client?s current stressor is issues with turning off his ?thought-corn? or rumination at night which impacts client?s ability to fall asleep. Client appeared to benefit from gaining ideas from peers on ways to manage thought patterns at time. Progress noted as shown by client?s improved mood and outlook. Client to continue IOP to prevent decompensation and increase mood stability.
--- NOTE | 2018-07-18 10:10 | BH.SGPN.GN ---
Behaviors/Verbalizations/Mental Status: []Pt eye contact good, casually dressed, motor activity appropriate, speech normal rate and tone, mood anxious, constricted affect, thoughts linear and intact, no evidence of delusions or hallucinations. Client Response/Progress/Benefit: []Pt listened attentively to peers and contributed to discussion at times. When processing quote pt reported it's important to be flexible in thinking because will help you withstand and overcome hardships. Pt shared if one is rigid in their thinking then it would be more difficult to overcome hardships if not willing to see other ways or perspectives on how to overcome a tough situation. Pt agreed with peers that resilience is something that can be learned and strengthened. Pt worked cooperatively with his small group to identify how the different factors can help improve one's resilience. Pt seemed to benefit from increased awareness of the different components that can help increase pt's resiliency. Narrative Note: []
--- NOTE | 2018-07-18 11:15 | BH.SGPN.GN ---
Behaviors/Verbalizations/Mental Status: []Pt eye contact good, casually dressed, motor activity appropriate, speech normal rate and tone, mood anxious, constricted affect, thoughts linear and intact, no evidence of delusions or hallucinations. Client Response/Progress/Benefit: []Pt engaged throughout session AEB pt contributing thoughts and ideas to discussion and listening attentively to peers. Pt worked cooperatively with others during the challenge activity. When processing activity pt reported communicating and working as a team were strategies that helped the group be resilient and successful. Pt reported the resiliency factor he wants to strengthen is to keep things in perspective. Pt shared he will blow things out of proportion which results in the situation/stressor appears impossible to overcome and pt will avoid. Pt recognizes importance of being able to challenge his catastrophizing thoughts. Pt seemed to benefit from focusing on which resiliency factor pt would like to strengthen. Pt to continue IOP level of care to decrease anxiety, maintain gains and prevent decompensation. Narrative Note: []
--- NOTE | 2018-07-19 09:07 | BH.SGPN.GN ---
Behaviors/Verbalizations/Mental Status: [] Eye contact is good. Motor activity is appropriate. Appearance is neat. Speech is Appropriate. Mood is anxious. Affect is congruent. Thoughts are linear and logical. No evidence of psychosis. Reviewed daily check in sheet and with reports of suicidal ideations of 1/5 which is low and 0/5 for intent. . Client Response/Progress/Benefit: [] Pt was an active participant in group discussion on gas lighting which is when an individual manipulates someone by psychological means to questions their sanity. Pt reports a rollercoaster of emotions yesterday related to recent job interviews. Shared with the group that he felt that he managed his emotions well and avoided any extreme reactions. Also shared that he set himself up with a therapist yesterday as part of aftercare plan. Reports that first meeting with this therapist went well. Progress noted due to linking himself with therapist which is a huge step and something he was reluctant to do in the past and managed emotions during stress events. Benefited from education and group support. Will continue in IOP to maintain safety, stabilize mood on consistent basis, and improve daily functioning. Narrative Note: []
--- NOTE | 2018-07-19 10:10 | BH.SGPN.GN ---
Behaviors/Verbalizations/Mental Status: []Eye contact is good. Motor activity is appropriate. Appearance is casual. Speech is Appropriate. Mood is anxious. Affect is congruent. Thoughts are linear and logical. No evidence of psychosis. Client Response/Progress/Benefit: []Pt engaged during session AEB pt contributing to discussion and engaging in group activity. Pt connected with the quote that we can create problems that aren't there just by the way we think. Pt able to relate on how his negative and anxious thinking resulted in increased problems and made his ability to problem solve much more difficult. Pt agreed with peers problem solving requires ability and willingness to do something different and challenge distorted thought patterns. When processing activity pt noted that sometimes it would be helpful to reach out to supports to help identify ways to solutions to a problem when stuck and not making forward progress. Pt seemed to benefit from increased awareness of a problem solving method. Narrative Note: []
--- NOTE | 2018-07-19 11:20 | BH.SGPN.GN ---
Eye contact is good. Motor activity is appropriate. Appearance is casual. Speech is Appropriate. Mood is anxious. Affect is congruent. Thoughts are linear and logical. No evidence of psychosis. Behaviors/Verbalizations/Mental Status: [] Client Response/Progress/Benefit: []Pt listened attentively to others and contributed to discussion. Pt reported his problem to be: house that is too large and expensive. Pt identified steps can take to reach solution of downsizing home to include: getting rid of the house items he does not need, pack up what wants to keep, organize items keeping, and look for new smaller homes to purchase. Pt reported he believed the steps he identified to downsizing home are manageable.Pt seemed to benefit from identifying ways to overcome one of his identified problems. Pt to continue IOP level of care to maintain gains and prevent decompensation. Narrative Note: []
--- NOTE | 2018-07-19 14:38 | BH.MDN ---
Multi-Disciplinary Note - Note 45-min Individual Time Started:: 12:15 Date: 07/19/18 Purpose of session/treatment goals addressed:: Review and assess current symptoms. Discuss progress in IOP. Addressed treatment goals 1 and 2. Eye Contact:: Good Motor Activity:: Appropriate Appearance:: Casual Speech:: Appropriate Mood:: Anxious, Depressed Affect:: Congruent Thoughts:: Linear, Logical, No evidence of hallucinations/delusions noted Staff Interventions:: Utilized [place] techniques to elict change behaviors. Therapist continues to challenge pt's cognitive distortions, help him work through thought record, and suggest coing strategies. Client Response:: Pt reports improved mood from last week. States that he has been less tired and his sleep is improving. With increased energy his activity has increased as well. Continues to interview and seek employment. Future-oriented about possible job oppurtunity. Pt reports that he continues to ruminate on previous relationship. Reviewed his thoughts and emotions associated with the rumination. Rumination often leads to depressive thoughts. Challenged his romantized thoughts of previous relationship and developed additional strategies to manage these ruminations. Aside from those ruminations pt beleives that he is managing his anger more appropriately through coping skills and thought challenging. Also beleives that his medication is helping with mood management. Continues to report progress in effective communication and decreased conflict with . Risks/Concerns:: No risks or concerns noted. Continues to have passive thoughts of which are fleeting (less than a minute). Feels that he can control these thoughts. Progress Toward Goals/Plan:: Pt reports progress since last week. Reports benefits to medication changes and increased coping skills for emotions. Struggling with ruminations involving past relationship which if not managed cause decompensation. Fleeting passive thoughts of . Will continue in IOP to maintain safety, stablize mood, and prevent decompensation. Time Stopped:: 13:00
--- NOTE | 2018-07-19 14:51 | BH.MDN_ITS ---
Multi-Disciplinary Note - Note 45-min Individual Time Started:: 12:15 Date: 07/19/18 Purpose of session/treatment goals addressed:: Review and assess current symptoms. Discuss progress in IOP. Addressed treatment goals 1 and 2. Eye Contact:: Good Motor Activity:: Appropriate Appearance:: Casual Speech:: Appropriate Mood:: Anxious, Depressed Affect:: Congruent Thoughts:: Linear, Logical, No evidence of hallucinations/delusions noted Staff Interventions:: Utilized [place] techniques to elict change behaviors. Therapist continues to challenge pt's cognitive distortions, help him work through thought record, and suggest coing strategies. Client Response:: Pt reports improved mood from last week. States that he has been less tired and his sleep is improving. With increased energy his activity has increased as well. Continues to interview and seek employment. Future- oriented about possible job oppurtunity. Pt reports that he continues to ruminate on previous relationship. Reviewed his thoughts and emotions associated with the rumination. Rumination often leads to depressive thoughts. Challenged his romantized thoughts of previous relationship and developed additional strategies to manage these ruminations. Aside from those ruminations pt beleives that he is managing his anger more appropriately through coping skills and thought challenging. Also beleives that his medication is helping with mood management. Continues to report progress in effective communication and decreased conflict with . Risks/Concerns:: No risks or concerns noted. Continues to have passive thoughts of which are fleeting (less than a minute). Feels that he can control these thoughts. Progress Toward Goals/Plan:: Pt reports progress since last week. Reports benefits to medication changes and increased coping skills for emotions. Struggling with ruminations involving past relationship which if not managed cause decompensation. Fleeting passive thoughts of . Will continue in IOP to maintain safety, stablize mood, and prevent decompensation. Time Stopped:: 13:00
--- NOTE | 2018-07-22 09:10 | BH.SGPN.GN ---
Behaviors/Verbalizations/Mental Status: [] Eye contact is good. Motor activity is appropriate. Appearance is neat. Speech is Appropriate. Mood is euthymic. Affect is full. Thoughts are linear and logical. No evidence of psychosis. Reviewed daily check in sheet and no reports of suicidal ideations or intent Client Response/Progress/Benefit: [] Pt was an active participant in group discussion. Provided appropriate feedback to peers. Emotion for today is happy. Shared with the group that his medication changes appear to be getting better and recent appointment with outpatient psychiatrist went well. He is going to start a new part-time job next weeks and reports being anxious and excited. Continues to ruminate on past choices which increases his depression and lead to over-thinking. Discussed briefly how this negatively impacts his day. Admits to struggling with managing these ruminations. Some progress and challenges reported per pt report. Benefited from group encouragement, support, and feedback. Will continue in IOP to maintain safety, prevent decompensation, and stabilize mood. Narrative Note: []
--- NOTE | 2018-07-22 10:10 | BH.SGPN.GN ---
Behaviors/Verbalizations/Mental Status: []Client alert and oriented, neatly dressed and groomed. Eye contact good. Motor activity appropriate. Speech within normal limits. Affect bright-smiling, mood euthymic. Thoughts linear, logical, no signs of hallucinations or delusions. Client Response/Progress/Benefit: []Client responded well to session, active participant. Client appeared to connect with the topic of conflict, sharing ?life would be boring without conflict.? Client reported attitude, emotions, and stress impact one?s ability to manage conflict effectively. Client helped the group discuss the different types of conflict resolutions styles. Client reported he often uses the competing style and the collaborative style at work and home. Client shared mostly his style works for him unless his frustration escalates. Client appeared to benefit from learning how the different conflict styles impact mental health and relationships. Client to continue IOP to increase mood stability and emotional regulation skills.
--- NOTE | 2018-07-22 11:12 | BH.SGPN.GN ---
Behaviors/Verbalizations/Mental Status: [ Client receptive of session, maintained good eye contact, consistent input provided. Appearance casual, appropriate grooming/hygiene. Motor activity WNL. Client speech a normal rate and tone, mood euthymic, optimistic smiling and joking throughout. Affect congruent with mood, bright. Client thoughts remained linear and logical, no evidence of delusions or hallucinations] Client Response/Progress/Benefit: [Client receptive of session, actively engaged in activity and discussion portions of group. Did well to provide insight to the group regarding how relationship dynamics impact conflict resolution. Discussed that if he does not feel he is being heard his approach to potential conflict changes. Client identified often being assertive when managing conflict, though can work collaboratively in a group as displayed in his interaction during the activity portion. Benefited from reflecting upon how time constraints and comfort levels in activity impacted conflict approach and displayed progress in ability to relate this back to his own conflict resolution approach in daily life. Recommended continued IOP tx to improve consistency of skill application.] Narrative Note: []
--- NOTE | 2018-07-26 09:00 | BH.SGPN.GN ---
Behaviors/Verbalizations/Mental Status: []Client alert and oriented, neatly dressed and groomed. Eye contact fair. Motor activity restless- playing with his pen. Speech within normal limits. Affect congruent to mood. Mood anxious, euthymic. Thoughts linear, logical, no signs of hallucinations or delusions. Reviewed client?s symptom tracker. Client marked 1 out of 5 for thoughts of suicide. Client marked 0 out 5 for risk of suicide. Client denies active suicidal ideation, plan, and intent as of 07/26/18. Client Response/Progress/Benefit: []Client responded well to session, participating in activity and discussion. Client reported the mindfulness-G.L.A.D activity helped client acknowledge positives. Client reports feeling ?all over the place? today as client expressed feeling hopeful, apprehensive, and agitated all at once. Client?s current stressor is ongoing issues with ruminations at night that impacts client?s ability to fall asleep. Client shared he feels frustrated by the situation as client ?tries to use strategies, but then thoughts keep popping up.? Client received strategies from the group on ways to manage ruminations. 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 Client appeared to benefit from connecting with peers. Progress noted in client?s increased mood stability and reduced suicidal ideation. Client to continue IOP as he continues to report issues with ruminations and difficulty with consistent emotional regulation.
--- NOTE | 2018-07-26 10:00 | BH.SGPN.GN ---
Behaviors/Verbalizations/Mental Status: [] Eye contact is good. Motor activity is appropriate. Appearance is neat. Speech is Appropriate. Mood is anxious/irritable. Affect is congruent. Thoughts are linear and logical. No evidence of psychosis. Reviewed daily check in sheet and no reports of suicidal ideations or intent. Client Response/Progress/Benefit: [] Pt participated to a degree in the group activity. Pt chanel a question darien for his current reality stating I'm not sure where I'm at currently. States that his current reality changes rapidly throughout the day. He reports being confident and stable one moment and anxious, depressed, and ruminating the next. Reports that he is constantly living in my head. Described his desired reality as being stable, having a defined purpose, and being strong enough not to backslide into ruminations. Benefited from group by increasing self-awareness of current mental state and her desired mental state. Narrative Note: []
--- NOTE | 2018-07-26 11:00 | BH.SGPN.GN ---
Behaviors/Verbalizations/Mental Status: [] Eye contact is good. Motor activity is appropriate. Appearance is casual. Speech is Appropriate. Mood is euthymic. Affect is full. Thoughts are linear and logical. No evidence of psychosis. Client Response/Progress/Benefit: [] Pt was an active participant in group activity. Pt was able to identify obstacles that are keeping him from reaching his desired reality. Pt reports obstacles to desired reality are indecision, self-doubt, lack of motivation, fear of failure, and discouragement. Pt along with peers worked together to come up with some strategies to overcome these obstacles. Benefited from identifying obstacles to desired reality and developing strategies to overcome obstacles. Will continue in IOP to maintain safety, stabilize moods, and prevent further decompensation. Narrative Note: []
--- NOTE | 2018-07-26 15:18 | BH.MDN ---
Multi-Disciplinary Note - Note 45-min Individual Time Started:: 12:00 Date: 07/26/18 Purpose of session/treatment goals addressed:: Accessed current symptoms and progress in IOP. Addressed treatment plan goals 1 and 2. Eye Contact:: Good Motor Activity:: Appropriate Appearance:: Casual Speech:: Appropriate Mood:: Anxious, Depressed Affect:: Congruent Thoughts:: Linear, Logical, No evidence of hallucinations/delusions noted Staff Interventions:: utilized [place] techniques to elicit change behaviors. Provided education on CBT coing skills, radical acceptance, and normalized grief reactions and ruminations related to recent break-up. Encouraged the use on internal coping skills along with distractions. Client Response:: Pt reports that he started a part-time job on Wednesday and that this job will be helpful to build his resume and to keep himself motivated with a purpose until he can find something full-time. Continues to struggle with managing ruminating thoughts regarding past relationship and poor choices during his previous job which led to termination. Ruminations are worse at night while attempting to fall asleep. Believes that he regressed from 2 weeks ago when he felt his ruminations were less intense. Main strategy used is distraction. Able to identify other strategies such as thought-stopping, reframing, and other internal coping skills however reports minimal benefit. Responded well to further education on CBT techniques. Risks/Concerns:: No risks or concerns noted. Denies suicidal ideations, plan, or intent. Progress Toward Goals/Plan:: Pt reports progress in certain areas however regression in others. Reports that ruminations are causing increase in symptoms which cycle throughout the day. States I feel like I'm progressing one moment and regressing the other. Medication compliant. Linked with outpatient counseling and psychiatry. Consistent attendance and participation in groups. Will continue in IOP to stablize mood, prevent decompensation, and decrease ruminations. Time Stopped:: 12:50
--- NOTE | 2018-07-29 09:10 | BH.SGPN.GN ---
Behaviors/Verbalizations/Mental Status: [] Eye contact is good. Motor activity is appropriate. Appearance is neat. Speech is Appropriate. Mood is depressed. Affect is flat. Thoughts are linear and logical. No evidence of psychosis. Reviewed daily check in sheet with reports of 1/5 for suicidal ideations and 0/5 for intent. Client Response/Progress/Benefit: [] Pt was an active participant in group discussion. Emotions for today is positive. Shared with the group that he has a couple of good days. Has been focused on part-time job responsibilities which has increased purpose throughout the day and given motivation. Discussed some of the positives that occurred and stated he believes that he is managing his emotions effectively in the past few days. Progres noted per pt report. Benefited from group support, encouragement, and feedback. Will continue in IOP to maintain safety, stabilize emotions, and prevent decompensation. Narrative Note: []
--- NOTE | 2018-07-29 10:12 | BH.SGPN.GN ---
Behaviors/Verbalizations/Mental Status: [] Pt eye contact good, casually dressed, motor activity appropriate, speech normal rate and tone, mood euthymic, congruent affect, thoughts linear and intact, no evidence of delusions or hallucinations. Client Response/Progress/Benefit: []Pt contributed to discussion and commented on others comments. Pt reported for him a barrier to making positive changes is comfort zone because he is familiar with the current choices and behaviors he is engaging in. Pt shared other barreirs to include avoidance of his problems and not knowing how to improve his situation. Pt reported a personal pitfall for him is when he has a limit of only 2 beers but rationalizes why he can have 3 beers, which then leads to many more beers. Pt seemed to benefit from increased awareness of how personal pitfalls can impact treatment progress. Narrative Note: []
--- NOTE | 2018-07-29 11:20 | BH.SGPN.GN ---
Behaviors/Verbalizations/Mental Status: [] Pt eye contact good, casually dressed, motor activity appropriate, speech normal rate and tone, mood euthymic, congruent affect, thoughts linear and intact, no evidence of delusions or hallucinations. Client Response/Progress/Benefit: [] Patient contributed to discussion and listened attentively to others. Client connected the importance of communicating and utilizing supports and strategies that can help overcome her avoid pitfalls. Client shared his personal pitfalls to include: Procrastination, freezing which leads to lack of decision making, self-doubt, unrealistic comparisons to others, distracting thoughts, and people pleasing. Client reported he will focus on decreasing his freezing behavior when unsure of where to start for project by selecting an area to focus on and creating a smart goal. Client seemed to benefit from increased awareness of personal pitfalls and identifying strategies that can help him overcome her defeat specific personal pitfall. Client to continue IOP level of care to stabilize moods, maintaining progress, and prevent decompensation. Narrative Note: []
--- NOTE | 2018-08-03 09:05 | BH.SGPN.GN ---
Behaviors/Verbalizations/Mental Status: [] Pt eye contact good, casually dressed, motor activity appropriate, speech normal rate and tone, mood euthymic, congruent affect, thoughts linear and intact, no evidence of delusions or hallucinations. Reviewed client?s symptom tracker, no signs of suicidal ideation, plan, or intent as of today. Client Response/Progress/Benefit: []Pt listened attentively to peers and shared thoughts and feelings. 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 Pt shared another positive is having his DUI charges dropped to a level 1 charge, which pt stated will decrease some of his consequences. Pt reported his stressor is potentially not being able to move out of state due to the legal charges. Pt shared another positive is having his daughter stop over for dinner, which pt stated was nice to spend quality time with her. Pt demonstrating progress AEB pt reporting decrease in depressive and anxious symptoms. Pt to continue IOP level of care to maintain gains and prevent decompensation. Narrative Note: []
--- NOTE | 2018-08-03 10:10 | BH.SGPN.GN ---
Behaviors/Verbalizations/Mental Status: [] Eye contact is good. Motor activity is appropriate. Appearance is casual. Speech is Appropriate. Mood is depressed. Affect is flat. Thoughts are linear and logical. No evidence of psychosis. Client Response/Progress/Benefit: [] Pt was an active participant in group discussion and activity. Worked with the group on defining coping skills as methods or strategies that one uses to manage stressful situations and emotions. Group brainstormed some internal and external coping skills. Along with the group discussed how inappropriate coping skills (isolation) effect us and at times can cause more problems. Also along with other group members discussed the ways in which appropriate coping skills help us manage our emotions and improve wellness. Pt reports that he understands that he will avoid his problems through distractions and believes that internal coping skills like mindfulness and acceptance would be more beneficial. Progress noted as pt was able to identify internal and external coping skills as well as the effect of good and bad coping skills have on our well-being. Will continue in IOP to maintain gains, maintain safety, and decrease daily ruminations. Narrative Note: []
--- NOTE | 2018-08-03 11:12 | BH.SGPN.GN ---
Behaviors/Verbalizations/Mental Status: [Client alert and oriented; however, often distracted by phone and disengaged, casually and neatly dressed. Eye contact fair client on phone throughout group. Motor activity appropriate. Speech within normal limits. Affect congruent, mood euthymic. Thoughts linear, logical, no signs of hallucinations or delusions. ] Client Response/Progress/Benefit: [Client receptive of session, providing ideas for health coping strategies however often appearing disengaged or distracted by self/phone. Despite difficulties maintaining focus, client helped the group discuss the different categories of coping skills and the pros and cons of each. Client created a coping skills menu with a coping skill from each category- distraction, grounding, emotional release, self-love, and thought challenge. Client?s menu included: practicing mindfulness, listening to music, cultivating relationships via spending time with supports, and challenging negative thoughts by asking Is this thought realistic or is there another way I can look at this. Client did well to become increasingly engaged during discussion on Self-love and expressed connecting with the idea of how physical health impacts mental health. Client appeared to benefit from gaining numerous coping skills and learning the pros and cons of each coping skill category. Client to continue IOP to prevent decompensation and increase consistency of healthy coping skills.] Narrative Note: []
--- NOTE | 2018-08-09 09:06 | BH.SGPN.GN ---
Behaviors/Verbalizations/Mental Status: []Client alert and oriented, neatly dressed and groomed. Eye contact fair. Motor activity appropriate. Speech within normal limits. Affect incongruent AEB client reporting anxiety, but smiling and laughing, mood anxious. Thoughts linear, logical, no signs of hallucinations or delusions. Reviewed client?s symptom tracker. Client marked 1 out 5 for suicidal thoughts. Client denies active suicidal ideation, plan, or intent as of 08/09/18. Client Response/Progress/Benefit: []Client responded well to session, providing supportive statements to peers. Client reports feeling ?anxious? today due to an upcoming stressor. 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 thoughts and feeling ?frozen.? Client expressed his anxiety often presents as depression, which in the past led client to feel overwhelmed and shut down. However, client reflected on progress and acknowledged that he no longer shuts down and he has been challenging his negative thoughts. Client reported he keeps reminding himself ?you will teach them something? you have a lot of experience.? The group provided supportive statements and pointed out addition strengths client has. Client appeared to benefit from reflecting on progress and receiving support from the group. Progress noted as shown by client?s reduced depressive symptoms and self-report of being able to better manage stressors. Client to continue IOP to increase mood stability and application of healthy coping skills.
--- NOTE | 2018-08-09 10:05 | BH.SGPN.GN ---
Behaviors/Verbalizations/Mental Status: [] Pt eye contact good, casually dressed, motor activity appropriate, speech normal rate and tone, mood euthymic, congruent affect, thoughts linear and intact, no evidence of delusions or hallucinations. Client Response/Progress/Benefit: []Pt listened attentively to peers and contributed thoughts and ideas to discussion. When processing quote pt reported if one closes self off to gaining self-awareness or reaching out to supports in the midst of a crisis, it is likely more problems will ensue. Pt connected with the idea that if one uses unhealthy coping skills to manage a crisis, it will likely result in a personal crisis or more problems. Pt reported when he is in a crisis he feels like he is stuck in constant anxiety and rumination which leads pt to freezing. Pt shared he often will freeze when faced with a crisis, which pt recognizes by freezing he doesn't move forward. Pt seemed to benefit from increased awareness of how he experiences crisis and how his reaction to crisis can result in a personal crisis. Narrative Note: []
--- NOTE | 2018-08-09 11:07 | BH.SGPN.GN ---
Behaviors/Verbalizations/Mental Status: [] Pt eye contact good, casually dressed, motor activity appropriate, speech normal rate and tone, mood euthymic, congruent affect, thoughts linear and intact, no evidence of delusions or hallucinations. Client Response/Progress/Benefit: []Pt listened attentively to others and shared thoughts and feelings throughout discussion. Pt identified top warning signs of a personal crisis includes: loss of interest, increased risk taking, and increased sleep. Pt reported for his crisis survival kit he chose the following items that will remind him of either a positive skill or happy memory:blue and orange shape to remind him of his favorite colors that are calming, letters that remind him scrabble game is relaxing to him, rock to remind him of his strength, and small clip to remind him to appreciate the small things. Pt identified his goal for next few days is to get his car put away for winter. Pt seemed to benefit from creating a crisis kit that will remind him of skills that could help when noticing warning signs of a personal crisis. Pt to continue IOP level of care to maintain gains and prevent decompensation. Narrative Note: []
--- NOTE | 2018-08-09 14:40 | BH.MDN ---
Multi-Disciplinary Note - Note 45-min Individual Time Started:: 12:15 Date: 08/09/18 Purpose of session/treatment goals addressed:: Reviewed progress in IOP. Assessed current symptoms. Addressed treatment plan goals 1 and 2 Eye Contact:: Good Motor Activity:: Appropriate Appearance:: Neat Speech:: Appropriate Mood:: Euthymic Affect:: Full, Bright Thoughts:: Linear, Logical, No evidence of hallucinations/delusions noted Staff Interventions:: Utilized [place] techniques to elicit change behaviors. Reviewed progress, skills learned, and treatment plan. Client Response:: Pt reports that his mood has been stable. Reports progress in management of depression, anxiety, and ruminations. Since last session pt has implemented several strategies to better manage his ruminating thoughts. Feels more in control of his thoughts and emotions. 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 Admits that marriage and relationship with has its ups and downs. Therapist brought up discharge and pt reports that due to traveling and new part-time job he will not be able to make it to [facility] in 2 weeks. Further discussion of symptoms and progress we both decided that pt could discharge today. Pt agreeable to discharge. Reviewed treatment plan. Pt is able to identify 5 anger signs and ways to calm. Able to identify 3 negative self-talk messages and ways to change/reframe negative thoughts. In the past few weeks pt has developed an anxiety management plan for his ruminations which has shown to be effective. Risks/Concerns:: No risks or concerns noted. Progress Toward Goals/Plan:: Progress noted per pt report. Pt has increased fucntioning and has begun part-time job. Denies any suicidal thoughts in over 2 weeks. Reports feels more in control of thoughts and emotions. Managing ruminations more effectively. Overall significant progress noted since starting PHP. Orignally plan to discharge pt after 2-3 more sessions however due to pt's schedule he is going to be working or traveling in the next 2 weeks therefore will be unable to attend [facility] for 16 days. Pt agreeable with discharge today as it having two week absence from [facility] would not be necessary. Aftercare in place. Pt will be discharged today. Met treatment plan goals. Time Stopped:: 13:00
--- NOTE | 2018-08-09 14:41 | BH.DS ---
Discharge Summary - Demographics Date of Admission:: 07/11/18 Discharge Date: 08/09/18 Presenting Problems at Admission:: Pt is a 48 year old male who was referred to [facility] by [facility] upon discharge on 06/21/18. Admitted to psychiatric unit on 06/15/18 due to suicidal ideations. Reports worsening depression, anxiety, and intermittent suicidal thoughts for the past two months. Acute stressor on 06/10/18 related to argument with and DUI which increased depression, hopelessness, and suicidal thoughts. Denies any hx of suicidal attempts. Denies HI or psychosis. Reports that he would drank on average 4-5 craft beers daily prior to DUI. Endorses frequent panic attacks due to psychosocial stressors which include conflicted marraige, recent extra-marital affairs, and unemployment. During PHP pt continued to voice sucidal ideations with thoughts about methods. Continued to report significant anxiety and ruminations which exacerbated SI and anxiety. Numerous psycho-social stressors including being unemployment, relationship conflicts, and legal issues upon entering [facility]. Discharge Diagnoses:: Bipolar 2 Disorder. Alcohol Use disorder, moderate. Anxiety, unspecified. Reason for Discharge:: No longer meets criteria for this level of care. - Treatment Progress During Treatment & Response: Progress noted per pt report. Pt has increased fucntioning and has begun part-time job. Denies any suicidal thoughts in over 2 weeks. Reports feels more in control of thoughts and emotions. Managing ruminations more effectively. Overall significant progress noted since starting [facility]. Orignally plan to discharge pt after 2-3 more sessions however due to pt's schedule he is going to be working or traveling in the next 2 weeks therefore will be unable to attend [facility] for 16 days. Pt agreeable with discharge today as having two week absence from [facility] would not be necessary. Aftercare in place. Pt will be discharged today. Met treatment plan goals. Issues Still to be Addressed:: Pt will continue to need to work on managing ruminations, depression, negative self-talk, anger managment, and relationships. Discharge Recommendations/Instructions:: Recommended that pt continue with counseling and medication managment. Pt has appointment with counselor as well as psychiatrist Dr. Wall on 08/10/18. Strongly encouraged pt to begin marriage counseling however he is reluctant. Discharge Handout: Complete Discharge Handout with client on aftercare options and continuity of care.
--- NOTE | 2018-08-09 14:41 | BH.AFTERPLAN ---
Aftercare Plan - Demographics Treatment End Date:: 08/09/18 Psychiatrist:: Gayatri Segal Psychiatrist Office #:: [phone] PHP/IOP Therapist:: Radames Yip Therapist Phone #:: [phone] - Medications Home Medications: Home Medications Montelukast [Singulair] 10 mg PO DAILY 07/01/18 busPIRone [Buspar] 15 mg PO TID 07/01/18 Divalproex Sodium [Depakote ER] 1,000 mg PO QHS 07/15/18 Losartan Potassium [Cozaar] 100 mg PO DAILY 07/15/18 Lurasidone HCl [Latuda] 20 mg PO DAILY 07/15/18 Simvastatin [Zocor] 40 mg PO QHS 07/15/18 Triamterene 37.5MG/Hctz 25MG [Dyazide (G)] 1 cap PO DAILY 07/15/18 - Plan Details Progress/Aftercare Plan Details:: Progress noted per pt report. Pt has increased fucntioning and has begun part-time job. Denies any suicidal thoughts in over 2 weeks. Reports feels more in control of thoughts and emotions. Managing ruminations more effectively. Overall significant progress noted since starting PHP. Orignally plan to discharge pt after 2-3 more sessions however due to pt's schedule he is going to be working or traveling in the next 2 weeks therefore will be unable to attend IOP for 16 days. Pt agreeable with discharge today as having two week absence from IOP would not be necessary. Aftercare in place. Pt will be discharged today. Met treatment plan goals. Strategies for Success:: 1. Utilize anxiety management plan. 2. Review IOP/PHP binder to refresh memory on skills learned in IOP. 3. Continue to challenge negative thougths and ruminations. - Appointments Appointments/Referrals to Other Services:: Dr. Wall (Psychiatrist)- 08/10/18. Therapist- 08/10/18
--- NOTE | 2018-08-09 14:44 | BH.DS_ITS ---
Discharge Summary - Demographics Date of Admission:: 07/11/18 Discharge Date: 08/09/18 Presenting Problems at Admission:: Pt is a 48 year old male who was referred to [facility] by [facility] upon discharge on 06/21/18. Admitted to psychiatric unit on 06/15/18 due to suicidal ideations. Reports worsening depression, anxiety, and intermittent suicidal thoughts for the past two months. Acute stressor on 06/10/18 related to argument with and DUI which increased depression, hopelessness, and suicidal thoughts. Denies any hx of suicidal attempts. Denies HI or psychosis. Reports that he would drank on average 4-5 craft beers daily prior to DUI. Endorses frequent panic attacks due to psychosocial stressors which include conflicted marraige, recent extra-marital affairs, and unemployment. During PHP pt continued to voice sucidal ideations with thoughts about methods. Continued to report significant anxiety and ruminations which exacerbated SI and anxiety. Numerous psycho-social stressors including being unemployment, relationship conflicts, and legal issues upon entering [facility]. Discharge Diagnoses:: Bipolar 2 Disorder. Alcohol Use disorder, moderate. Anxiety, unspecified. Reason for Discharge:: No longer meets criteria for this level of care. - Treatment Progress During Treatment & Response: Progress noted per pt report. Pt has increased fucntioning and has begun part-time job. Denies any suicidal thoughts in over 2 weeks. Reports feels more in control of thoughts and emotions. Managing ruminations more effectively. Overall significant progress noted since starting [facility]. Orignally plan to discharge pt after 2-3 more sessions however due to pt's schedule he is going to be working or traveling in the next 2 weeks therefore will be unable to attend [facility] for 16 days. Pt agreeable with discharge today as having two week absence from [facility] would not be necessary. Aftercare in place. Pt will be discharged today. Met treatment plan goals. Issues Still to be Addressed:: Pt will continue to need to work on managing ruminations, depression, negative self-talk, anger managment, and relationships. Discharge Recommendations/Instructions:: Recommended that pt continue with counseling and medication managment. Pt has appointment with counselor as well as psychiatrist Dr. Wall on 08/10/18. Strongly encouraged pt to begin marriage counseling however he is reluctant. Discharge Handout: Complete Discharge Handout with client on aftercare options and continuity of care.
--- NOTE | 2018-08-09 15:10 | BH.MDN_ITS ---
Multi-Disciplinary Note - Note 45-min Individual Time Started:: 12:15 Date: 08/09/18 Purpose of session/treatment goals addressed:: Reviewed progress in IOP. Assessed current symptoms. Addressed treatment plan goals 1 and 2 Eye Contact:: Good Motor Activity:: Appropriate Appearance:: Neat Speech:: Appropriate Mood:: Euthymic Affect:: Full, Bright Thoughts:: Linear, Logical, No evidence of hallucinations/delusions noted Staff Interventions:: Utilized [place] techniques to elicit change behaviors. Reviewed progress, skills learned, and treatment plan. Client Response:: Pt reports that his mood has been stable. Reports progress in management of depression, anxiety, and ruminations. Since last session pt has implemented several strategies to better manage his ruminating thoughts. Feels more in control of his thoughts and emotions. 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 Admits that marriage and relationship with has its ups and downs. Therapist brought up discharge and pt reports that due to traveling and new part-time job he will not be able to make it to [facility] in 2 weeks. Further discussion of symptoms and progress we both decided that pt could discharge today. Pt agreeable to discharge. Reviewed treatment plan. Pt is able to identify 5 anger signs and ways to calm. Able to identify 3 negative self-talk messages and ways to change/reframe negative thoughts. In the past few weeks pt has developed an anxiety management plan for his ruminations which has shown to be effective. Risks/Concerns:: No risks or concerns noted. Progress Toward Goals/Plan:: Progress noted per pt report. Pt has increased fucntioning and has begun part-time job. Denies any suicidal thoughts in over 2 weeks. Reports feels more in control of thoughts and emotions. Managing ruminations more effectively. Overall significant progress noted since starting PHP. Orignally plan to discharge pt after 2-3 more sessions however due to pt's schedule he is going to be working or traveling in the next 2 weeks therefore will be unable to attend [facility] for 16 days. Pt agreeable with discharge today as it having two week absence from [facility] would not be necessary. Aftercare in place. Pt will be discharged today. Met treatment plan goals. Time Stopped:: 13:00
--- NOTE | 2018-08-09 15:22 | BH.IGGP_ITS ---
Aftercare Plan - Demographics Treatment End Date:: 08/09/18 Psychiatrist:: Gayatri Segal Psychiatrist Office #:: [phone] PHP/IOP Therapist:: Radames Yip Therapist Phone #:: [phone] - Medications Home Medications: Home Medications Montelukast [Singulair] 10 mg PO DAILY 07/01/18 busPIRone [Buspar] 15 mg PO TID 07/01/18 Divalproex Sodium [Depakote ER] 1,000 mg PO QHS 07/15/18 Losartan Potassium [Cozaar] 100 mg PO DAILY 07/15/18 Lurasidone HCl [Latuda] 20 mg PO DAILY 07/15/18 Simvastatin [Zocor] 40 mg PO QHS 07/15/18 Triamterene 37.5MG/Hctz 25MG [Dyazide (G)] 1 cap PO DAILY 07/15/18 - Plan Details Progress/Aftercare Plan Details:: Progress noted per pt report. Pt has increased fucntioning and has begun part-time job. Denies any suicidal thoughts in over 2 weeks. Reports feels more in control of thoughts and emotions. Managing ruminations more effectively. Overall significant progress noted since starting PHP. Orignally plan to discharge pt after 2-3 more sessions however due to pt's schedule he is going to be working or traveling in the next 2 weeks therefore will be unable to attend IOP for 16 days. Pt agreeable with discharge today as having two week absence from IOP would not be necessary. Aftercare in place. Pt will be discharged today. Met treatment plan goals. Strategies for Success:: 1. Utilize anxiety management plan. 2. Review IOP/PHP binder to refresh memory on skills learned in IOP. 3. Continue to challenge negative thougths and ruminations. - Appointments Appointments/Referrals to Other Services:: Dr. Wall (Psychiatrist)- 08/10/18. Therapist- 08/10/18
== END 2018-08-09 14:43 | disposition home or self-care (01) ==
LOC: BHIOP 09:00
PROVIDERS: Referring Provider Psychiatry & Neurology Psychiatry; Visit Provider Psychiatry & Neurology Psychiatry
DX: F31.81 Bipolar II disorder (principal); F10.20 Alcohol dependence, uncomplicated; F41.9 Anxiety disorder, unspecified
CPT/HCPCS: H0035; 90834; 90853